=== PATIENT | male | born 2005 | race Two or more races ===

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

== ENCOUNTER 2025-01-15 12:14 | Emergency (ER) | payer OTHER ==
--- OUTSIDE RECORDS SUMMARY | 2025-01-15 12:24 | XMS REPORT | Continuity of Care Document ---
Author Name Unknown Address [address] [facility] [address] [place] [address] [facility] Address [address] [facility] [address] [place] [address] Care Team Providers Care Hvac/R Instructor Name Role Phone Mishel Mejia Primary Care Physician [phone] MONET KRISHNA Attending Clinician Unavailable WILLA CARLIN Attending Clinician Unavailable MELANIE BRANHAM Attending Clinician Unavailable LAB90 Attending Clinician Unavailable MD ZECHARIAH Attending Clinician Unavailab REN Yadav Attending Clinician Unavailable VANESSA LI Attending Clinician Unavailable PAT HOYT-SON Attending Clinician Unavailable MIHAI ANGELO Attending Clinician Unavailab Julisa Duong Attending Clinician [phone] Mishel Mejia Attending Clinician [phone] MISHEL STEPHENS Attending Clinician Unavailable Doctor Unassigned, [place] Attending Clinician U Lyle Lopez Attending Clinician U Tisha Calixto MD Attending Clinician [phone] TISHA HERNANDEZ Attending Clinician Unavailable Nurse, Josh Thorne Attending Clinician Unavailable JULISA BLANCHARD Attending Clinician Unavail able Janny Kraus PA-C Attending Clinician [phone] JANNY KRAUS Attending Clinician Unavailab BARBARA Yarbrough Attending Clinician Unavail able EFREN GREENE Attending Clinician Unavailable Shahana Granado MD Attending Clinician [phone] SHAHANA GRANADO Attending Clinician Unavail able Lab, Lkj Pedi Attending Clinician Unavailable Kimberly Johnson MD Attending Clinician [phone] Payers Payer Name Policy Type Policy Number Effective Date Expirati on Date Source [facility] [facility] 94 9 [id number] 2024 00:00:00 [employer] [facility] [id number] 2023 00:00:00 Problems Condition Name Condition Details Condition Category Status Onset Date Resolution Date Last Treatment Date Treating Clinician Comments Source Current severe episode of major depressive disorder without psychotic features without prior episode (multi HCC) Current severe episode of major depressive disorder without psychotic features without prior episode (multi HCC) Disease Active 11-28 00:00: 00 Maribell Seybold - Externa l Current mild episode of major depressive disorder without prior episode Current mild episode of major depressive disorder without prior episode Disease Active 23 00:00: 00 Maribell Seybold - Externa l Vitamin D deficiency Vitamin D deficiency Disease Active 3-14 00:00: 00 Maribell Seybold - Externa l Class 1 obesity due to excess calories without serious comorbidit y with body mass index (BMI) of 31.0 to 31.9 in adult Class 1 obesity due to excess calories without serious comorbidit y with body mass index (BMI) of 31.0 to 31.9 in adult Disease Active 14 00:00: 00 Maribell Seybold - Externa l Well adult exam Well adult exam Disease Active 01-01 00:00: 00 Maribell Seybold - Externa l Other sexual disorders Other sexual disorders Disease Active 01-01 00:00: 00 Maribell Seybold - Externa l Hair loss Hair loss Disease Active 01-01 00:00: 00 Maribell Seybold - Externa l Other fatigue Other fatigue Disease Active 01-01 00:00: 00 Maribell Seybold - Externa l Current severe episode of major depressive disorder without psychotic features without prior episode (multi HCC) Current severe episode of major depressive disorder without psychotic features without prior episode (multi HCC) Disease Active 01-01 00:00: 00 Maribell Griffina l Anxiety Anxiety Disease Active 01-01 00:00: 00 Maribell Wolf l Epigastric pain Epigastric pain Disease Active 2021-11 00:00: 00 [facility] Blood in stool Blood in stool Disease Active 2021-11 00:00: 00 [facility] Encounter to establish care Encounter to establish care Disease Active 2021-11 00:00: 00 [facility] Constipati on, unspecifie d constipati on type Constipati on, unspecifie d constipati on type Disease Active 2021-11 00:00: 00 [facility] No known active problems No known active problems Disease [facility] Allergies, Adverse Reactions, Alerts Allergy Name Allergy Type Status Severity Reaction(s) Onset Date Inactive Date Treating Clinician Comments Source NO KNOWN ALLERGIE S Drug Class Active [facility] Social History Social Habit Start Date Stop Date Quantity Comments Source Sexual orientation Enio michelle Dunlap - External Gender identity [facility] Alcoholic beverage intake 2024-11-28 00:00:00 2024-11-28 00:00:00 Current drinker of alcohol (finding) Maribell Dunlap - External Alcohol intake 2024-02-04 00:00:00 2024-02-04 00:00:00 Current drinker of alcohol (finding) Maribell Dunlap - External History of Social function 2024-01-01 00:00:00 2024-01-01 00:00:00 Maribell Dunlap - External Alcohol Comment 2024-01-01 00:00:00 2024-01-01 00:00:00 rare Maribell Dunlap - External Sex 2023-11-26 15:16:44 2023-11-26 15:16:44 Male (finding) Maribell Dunlap - External Exposure to SARS-CoV-2 (event) 2022-09-30 00:00:00 2022-10-10 13:33:00 Not sure [facility] Tobacco use and exposure 2022-10-10 00:00:00 2022-10-10 00:00:00 Smokeless tobacco non-user [facility] Sex assigned at 2004 00:00:00 2005 00:00:00 M Maribell Salgado External Smoking Status Start Date Stop Date Source Never smoked tobacco Maribell Salgado External Medications Ordered Medication Name Filled Medication Name Start Date Stop Date Current Medication? Ordering Clinician Indication Dosage Frequency Signature (SIG) Comments Components Source Mupirocin (BACTROBAN) 2 % apply externally Ointment 11-28 00:00: 00 Yes [id number] 1{appli cation} [id number] 3D Apply 1 Applicatio n topically 3 times daily. Maribell silver Finasteride 1 MG oral Tablet 2023-11 00:00: 00 Yes [id number] 1mg QD Take 1 tablet (1 mg total) by mouth daily. Maribell silver Methylpheni date HCl 27 MG oral Tab CR 2023-11 016 00:00: 00 Yes 27mg Take 1 tablet (27 mg total) by mouth every morning. Maribell silver Minoxidil 5 % apply externally Foam 2023-11 0- 00:00: 00 Yes [id number] 1{appli cation} QD Apply 1 Applicatio n topically daily. Maribell silver MINOXIDIL, TOPICAL, (Minoxidil for Men) 5 % apply externally Solution 2023-11 0- 00:00: 00 Yes [id number] 1{appli cation} Q.5D Apply 1 Applicatio n topically 2 times daily. Maribell silver Escitalopra m Oxalate 10 MG oral Tablet 07-18 00:00: 00 11-28 00:00 :00 No Maribell silver Minoxidil 5 % apply externally Foam 06-21 00:00: 00 Yes [id number] 1{appli cation} QD Apply 1 Applicatio n topically daily. Maribell silver Minoxidil-N iacinamide 7-4 % apply externally Solution 7- 00:00: 00 Yes [id number] 1{appli cation} QD Apply 1 Applicatio n topically daily. Maribell silver Escitalopra m Oxalate (Lexapro) 20 MG oral Tablet 06-21 00:00: 00 Yes [id number] 20mg QD Take 1 tablet (20 mg total) by mouth daily. Maribell silver Minoxidil-N iacinamide 7-4 % apply externally Solution 06-17 00:00: 00 06-21 00:00 :00 No [id number] 1{appli cation} QD Apply 1 Applicatio n topically daily. Maribell silver Minoxidil-N iacinamide 7-4 % apply externally Solution 05-24 00:00: 00 Yes [id number] 1{appli cation} QD Apply 1 Applicatio n topically daily. Maribell silver Finasteride 1 MG oral Tablet 05-24 00:00: 00 Yes [id number] 1mg QD Take 1 tablet (1 mg total) by mouth daily. Maribell silver Escitalopra m Oxalate (Lexapro) 20 MG oral Tablet 05-24 00:00: 00 06-21 00:00 :00 No [id number] 20mg QD Take 1 tablet (20 mg total) by mouth daily. Maribell silver Escitalopra m Oxalate 10 MG oral Tablet 05-17 00:00: 05-24 00:00 :00 No TAKE 1/2 TABLET BY MOUTH DAILY X 2 WEEKS THEN TAKE 1 TABLET BY MOUTH EVERY DAY AT BEDTIME Maribell silver Cholecalcif andrés (Vitamin D3) 25 MCG (1000 UT) oral Tablet 05-02 00:00: 00 Yes [id number] 1000U QD Take 1 tablet (1,000 units total) by mouth daily. Maribell silver Amphetamine -Dextroamph etamine 10 MG oral Tablet 04-21 00:00: 00 11-28 00:00 :00 No [id number] TAKE 1 TABLET BY MOUTH 2 TIMES PER DAY (SECOND DOSE @NOON) Maribell silver Fluoxetine HCl 20 MG oral Capsule 4-10 00:00: 00 03-15 00:00 :00 No [id number] 20mg Take 1 capsule (20 mg total) by mouth daily. Maribell silver Pseudoeph-B romphen-DM 30-2-10 MG/5ML oral Syrup 02-23 00:00: 00 03-15 00:00 :00 No [id number] 10mL Take 10 mL by mouth 4 times daily. Maribell silver FLUTICASONE PROPIONATE, NASAL, (Flonase) 50 MCG/ACT nasal Suspension 02-23 00:00: 00 03-15 00:00 :00 No [id number] 50ug QD Use 1 spray (50 mcg total) in each nostril daily as needed for rhinitis. Maribell silver Cholecalcif andrés (Vitamin D) 25 MCG (1000 UT) oral Tablet 02-03 00:00: 00 03-15 00:00 :00 No [id number] 1{tbl} Take 1 tablet by mouth daily. Maribell silver buPROPion HCl 100 MG oral Tablet 02-03 00:00: 00 03-15 00:00 :00 No [id number] 100mg Take 1 tablet (100 mg total) by mouth daily. Maribell silver Sertraline HCl 25 MG oral Tablet 2-09 00:00: 00 Yes [id number] 25mg Take 1 tablet (25 mg total) by mouth daily. Maribell silver No known medications 2021-11 14:01: 06 No No known medication s [facility] ketoconazol e 2 % shampoo 06-18 00:00: 00 10-10 00:00 :00 No [id number] Apply to area(s) once daily as needed for Itching. [facility] triamcinolo ne 0.025 % ointment 06-04 00:00: 00 10-10 00:00 :00 No [id number] AAA BID prn skin irritation /itch [facility] fluocinolon e 0.01 % solution 05-31 00:00: 00 06-04 00:00 :00 No [id number] AAA qhs prn scalp itching [facility] salicyclic acid-sulfur 2-2 % shampoo 04-24 00:00: 06-18 00:00 :00 No [id number] Apply to area(s) once daily as needed for Itching. [facility] sulfamethox azole-trime thoprim (BACTRIM DS) 800-160 mg per tablet 04-24 00:00: 00 05-05 04:59 :00 No [id number] 1{tbl} Take 1 tablet by mouth 2 (two) times daily for 10 days. [facility] mupirocin 2 % ointment 04-24 00:00: 00 05-02 04:59 :00 No [id number] Apply to area(s) 3 (three) times daily for 7 days. [facility] ketoconazol e 2 % shampoo 04-27 00:00: 00 04-24 00:00 :00 No [id number] Apply to area(s) once daily as needed for Itching. [facility] amoxicillin 875 mg tablet 2018-11 0 00:00: 04-27 00:00 :00 No 875mg Take 1 tablet by mouth 2 (two) times daily. Complete the full 10 day prescripti on. [facility] ketoconazol e 2 % shampoo 8- 00:00: 00 10-17 05:59 :00 No [id number] Apply to area(s) once daily as needed for Itching for up to 90 days. [facility] RANITIDINE 150 mg tablet 3-26 00:00: 00 04-27 00:00 :00 No [id number] TAKE 1 TABLET BY MOUTH TWICE A DAY [facility] Immunizations Ordered Immunization Name Filled Immunization Name Date Status Comments Source Influenza Virus Vaccine Quad IM, Preserv and ABX Free 6 MO-64 YRS 2022-10-10 00:00:00 Completed [facility] Influenza Virus Vaccine Quad IM, Preserv and ABX Free 6 MO-64 YRS 2022-10-10 00:00:00 Completed [facility] Influenza Virus Vaccine Quad IM, Preserv and ABX Free 6 MO-64 YRS 2022-10-10 00:00:00 Completed [facility] Influenza Virus Vaccine Quad IM 3+ YRS 2022-10-10 00:00:00 Completed [facility] DTAP 2022-10-10 00:00:00 Completed [facility] HIB 3 Dose Schedule 2022-10-10 00:00:00 Completed [facility] HEPATITIS A 2022-10-10 00:00:00 Completed [facility] Hep B, Adol or Pedi Dosage 2022-10-10 00:00:00 Completed [facility] MMR 2022-10-10 00:00:00 Completed [facility] Pneumococcal 13 Conjugate, PCV13 (Prevnar 13) 2022-10-10 00:00:00 Completed [facility] Polio (IPV/OPV) 2022-10-10 00:00:00 Completed [facility] Varicella (varivax)(chicken pox) 2022-10-10 00:00:00 Completed [facility] Meningococcal B, OMV 2022-10-10 00:00:00 Completed [facility] Meningococcal Polysaccharide (groups A, C, Y and W-135) conjugate vaccine (MCV4P) 2022-10-10 00:00:00 Completed [facility] TDAP 2022-10-10 00:00:00 Completed [facility] HPV9 2022-10-10 00:00:00 Completed [facility] SARS-COV-2 COVID-19 PFIZER VACCINE 2022-10-10 00:00:00 Completed [facility] Influenza Virus Vaccine Quad IM, Preserv and ABX Free 6 MO-64 YRS (FLUCELVAX) 2022-10-10 00:00:00 Completed [facility] SARS-COV-2 COVID-19 PFIZER VACCINE 2021-09-27 00:00:00 Completed [facility] SARS-COV-2 COVID-19 PFIZER VACCINE 2021-09-27 00:00:00 Completed [facility] SARS-COV-2 COVID-19 PFIZER VACCINE 2021-09-27 00:00:00 Completed [facility] SARS-COV-2 COVID-19 PFIZER VACCINE 2021-09-27 00:00:00 Completed [facility] SARS-COV-2 COVID-19 PFIZER VACCINE 2021-09-27 00:00:00 Completed [facility] Influenza Virus Vaccine Quad .5 mL IM 6+ MO 2021-09-20 00:00:00 Completed [facility] Influenza Virus Vaccine Quad .5 mL IM 6+ MO 2021-09-20 00:00:00 Completed [facility] Influenza Virus Vaccine Quad .5 mL IM 6+ MO 2021-09-20 00:00:00 Completed [facility] Influenza Virus Vaccine Quad .5 mL IM 6+ MO 2021-09-20 00:00:00 Completed [facility] Influenza Virus Vaccine Quad .5 mL IM 6+ MO 2021-09-20 00:00:00 Completed [facility] Influenza Virus Vaccine Quad .5 mL IM 6+ MO 2021-09-20 00:00:00 Completed [facility] HPV9 2021-04-24 00:00:00 Completed [facility] HPV9 2021-04-24 00:00:00 Completed [facility] HPV9 2021-04-24 00:00:00 Completed [facility] HPV9 2021-04-24 00:00:00 Completed [facility] HPV9 2021-04-24 00:00:00 Completed [facility] HPV9 2021-04-24 00:00:00 Completed [facility] HPV9 2021-04-24 00:00:00 Completed [facility] HPV9 2021-04-24 00:00:00 Completed [facility] HPV9 2021-04-24 00:00:00 Completed [facility] HPV9 2021-04-24 00:00:00 Completed [facility] HPV9 2021-04-24 00:00:00 Completed [facility] HPV9 2021-04-24 00:00:00 Completed [facility] HPV9 2021-04-24 00:00:00 Completed [facility] HPV9 2021-04-24 00:00:00 Completed [facility] HPV9 2021-04-24 00:00:00 Completed [facility] HPV9 2021-04-24 00:00:00 Completed [facility] SARS-COV-2 COVID-19 PFIZER VACCINE 2021-04-01 00:00:00 Completed [facility] SARS-COV-2 COVID-19 PFIZER VACCINE 2021-04-01 00:00:00 Completed [facility] SARS-COV-2 COVID-19 PFIZER VACCINE 2021-04-01 00:00:00 Completed [facility] SARS-COV-2 COVID-19 PFIZER VACCINE 2021-04-01 00:00:00 Completed [facility] SARS-COV-2 COVID-19 PFIZER VACCINE 2021-04-01 00:00:00 Completed [facility] SARS-COV-2 COVID-19 PFIZER VACCINE 2021-04-01 00:00:00 Completed [facility] SARS-COV-2 COVID-19 PFIZER VACCINE 2021-04-01 00:00:00 Completed [facility] SARS-COV-2 COVID-19 PFIZER VACCINE 2021-03-09 00:00:00 Completed [facility] SARS-COV-2 COVID-19 PFIZER VACCINE 2021-03-09 00:00:00 Completed [facility] SARS-COV-2 COVID-19 PFIZER VACCINE 2021-03-09 00:00:00 Completed [facility] SARS-COV-2 COVID-19 PFIZER VACCINE 2021-03-09 00:00:00 Completed [facility] SARS-COV-2 COVID-19 PFIZER VACCINE 2021-03-09 00:00:00 Completed [facility] SARS-COV-2 COVID-19 PFIZER VACCINE 2021-03-09 00:00:00 Completed [facility] SARS-COV-2 COVID-19 PFIZER VACCINE 2021-03-09 00:00:00 Completed [facility] TDAP 2021-02-01 00:00:00 Completed [facility] HPV9 2021-02-01 00:00:00 Completed [facility] TDAP 2021-02-01 00:00:00 Completed [facility] HPV9 2021-02-01 00:00:00 Completed [facility] TDAP 2021-02-01 00:00:00 Completed [facility] HPV9 2021-02-01 00:00:00 Completed [facility] TDAP 2021-02-01 00:00:00 Completed [facility] HPV9 2021-02-01 00:00:00 Completed [facility] TDAP 2021-02-01 00:00:00 Completed [facility] HPV9 2021-02-01 00:00:00 Completed [facility] TDAP 2021-02-01 00:00:00 Completed [facility] HPV9 2021-02-01 00:00:00 Completed [facility] TDAP 2021-02-01 00:00:00 Completed [facility] HPV9 2021-02-01 00:00:00 Completed [facility] TDAP 2021-02-01 00:00:00 Completed [facility] HPV9 2021-02-01 00:00:00 Completed [facility] TDAP 2021-02-01 00:00:00 Completed [facility] HPV9 2021-02-01 00:00:00 Completed [facility] TDAP 2021-02-01 00:00:00 Completed [facility] HPV9 2021-02-01 00:00:00 Completed [facility] TDAP 2021-02-01 00:00:00 Completed [facility] HPV9 2021-02-01 00:00:00 Completed [facility] TDAP 2021-02-01 00:00:00 Completed [facility] HPV9 2021-02-01 00:00:00 Completed [facility] TDAP 2021-02-01 00:00:00 Completed [facility] HPV9 2021-02-01 00:00:00 Completed [facility] TDAP 2021-02-01 00:00:00 Completed [facility] HPV9 2021-02-01 00:00:00 Completed [facility] TDAP 2021-02-01 00:00:00 Completed [facility] HPV9 2021-02-01 00:00:00 Completed [facility] TDAP 2021-02-01 00:00:00 Completed [facility] HPV9 2021-02-01 00:00:00 Completed [facility] TDAP 2021-02-01 00:00:00 Completed [facility] HPV9 2021-02-01 00:00:00 Completed [facility] Influenza Virus Vaccine Quad .5 mL IM 6+ MO 2020-08-31 00:00:00 Completed [facility] Influenza Virus Vaccine Quad .5 mL IM 6+ MO 2020-08-31 00:00:00 Completed [facility] Influenza Virus Vaccine Quad .5 mL IM 6+ MO 2020-08-31 00:00:00 Completed [facility] Influenza Virus Vaccine Quad .5 mL IM 6+ MO 2020-08-31 00:00:00 Completed [facility] Influenza Virus Vaccine Quad .5 mL IM 6+ MO 2020-08-31 00:00:00 Completed [facility] Influenza Virus Vaccine Quad .5 mL IM 6+ MO 2020-08-31 00:00:00 Completed [facility] Influenza Virus Vaccine Quad .5 mL IM 6+ MO 2020-08-31 00:00:00 Completed [facility] Influenza Virus Vaccine Quad .5 mL IM 6+ MO 2020-08-31 00:00:00 Completed [facility] Influenza Virus Vaccine Quad .5 mL IM 6+ MO 2020-08-31 00:00:00 Completed [facility] Influenza Virus Vaccine Quad .5 mL IM 6+ MO 2020-08-31 00:00:00 Completed [facility] Influenza Virus Vaccine Quad .5 mL IM 6+ MO 2020-08-31 00:00:00 Completed [facility] Influenza Virus Vaccine Quad .5 mL IM 6+ MO 2020-08-31 00:00:00 Completed [facility] Influenza Virus Vaccine Quad .5 mL IM 6+ MO 2020-08-31 00:00:00 Completed [facility] Influenza Virus Vaccine Quad .5 mL IM 6+ MO 2020-08-31 00:00:00 Completed [facility] Influenza Virus Vaccine Quad .5 mL IM 6+ MO 2020-08-31 00:00:00 Completed [facility] Influenza Virus Vaccine Quad .5 mL IM 6+ MO 2020-08-31 00:00:00 Completed [facility] Influenza Virus Vaccine Quad .5 mL IM 6+ MO 2020-08-31 00:00:00 Completed [facility] Influenza Virus Vaccine Quad .5 mL IM 6+ MO 2020-08-31 00:00:00 Completed [facility] Influenza Virus Vaccine Quad .5 mL IM 6+ MO 2020-08-31 00:00:00 Completed [facility] Influenza Virus Vaccine Quad .5 mL IM 6+ MO 2020-08-31 00:00:00 Completed [facility] Influenza Virus Vaccine Quad .5 mL IM 6+ MO 2020-08-31 00:00:00 Completed [facility] Influenza Virus Vaccine Quad .5 mL IM 6+ MO 2020-08-31 00:00:00 Completed [facility] Influenza Virus Vaccine Quad .5 mL IM 6+ MO 2020-08-31 00:00:00 Completed [facility] Influenza Virus Vaccine Quad .5 mL IM 6+ MO 2020-08-31 00:00:00 Completed [facility] Meningococcal B, OMV 2020-05-30 00:00:00 Completed [facility] Meningococcal B, OMV 2020-05-30 00:00:00 Completed [facility] Meningococcal B, OMV 2020-05-30 00:00:00 Completed [facility] Meningococcal B, OMV 2020-05-30 00:00:00 Completed [facility] Meningococcal B, OMV 2020-05-30 00:00:00 Completed [facility] Meningococcal B, OMV 2020-05-30 00:00:00 Completed [facility] Meningococcal B, OMV 2020-05-30 00:00:00 Completed [facility] Meningococcal B, OMV 2020-05-30 00:00:00 Completed [facility] Meningococcal B, OMV 2020-05-30 00:00:00 Completed [facility] Meningococcal B, OMV 2020-05-30 00:00:00 Completed [facility] Meningococcal B, OMV 2020-05-30 00:00:00 Completed [facility] Meningococcal B, OMV 2020-05-30 00:00:00 Completed [facility] Meningococcal B, OMV 2020-05-30 00:00:00 Completed [facility] Meningococcal B, OMV 2020-05-30 00:00:00 Completed [facility] Meningococcal B, OMV 2020-05-30 00:00:00 Completed [facility] Meningococcal B, OMV 2020-05-30 00:00:00 Completed [facility] Meningococcal B, OMV 2020-05-30 00:00:00 Completed [facility] Meningococcal B, OMV 2020-05-30 00:00:00 Completed [facility] Meningococcal B, OMV 2020-05-30 00:00:00 Completed [facility] Meningococcal B, OMV 2020-05-30 00:00:00 Completed [facility] Meningococcal B, OMV 2020-05-30 00:00:00 Completed [facility] Meningococcal B, OMV 2020-05-30 00:00:00 Completed [facility] Meningococcal B, OMV 2020-05-30 00:00:00 Completed [facility] Meningococcal B, OMV 2020-05-30 00:00:00 Completed [facility] Meningococcal B, OMV 2020-05-30 00:00:00 Completed [facility] Meningococcal B, OMV 2020-05-30 00:00:00 Completed [facility] Meningococcal B, OMV 2020-05-30 00:00:00 Completed [facility] Meningococcal B, OMV 2020-05-30 00:00:00 Completed [facility] Meningococcal B, OMV 2020-05-30 00:00:00 Completed [facility] Meningococcal B, OMV 2020-05-30 00:00:00 Completed [facility] Meningococcal B, OMV 2020-05-30 00:00:00 Completed [facility] Meningococcal B, OMV 2020-05-30 00:00:00 Completed [facility] Meningococcal B, OMV 2020-04-27 00:00:00 Completed [facility] Meningococcal Polysaccharide (groups A, C, Y and W-135) conjugate vaccine (MCV4P) 2020-04-27 00:00:00 Completed [facility] Meningococcal B, OMV 2020-04-27 00:00:00 Completed [facility] Meningococcal Polysaccharide (groups A, C, Y and W-135) conjugate vaccine (MCV4P) 2020-04-27 00:00:00 Completed [facility] Meningococcal B, OMV 2020-04-27 00:00:00 Completed [facility] Meningococcal Polysaccharide (groups A, C, Y and W-135) conjugate vaccine (MCV4P) 2020-04-27 00:00:00 Completed [facility] Meningococcal B, OMV 2020-04-27 00:00:00 Completed [facility] Meningococcal Polysaccharide (groups A, C, Y and W-135) conjugate vaccine (MCV4P) 2020-04-27 00:00:00 Completed [facility] Meningococcal B, OMV 2020-04-27 00:00:00 Completed [facility] Meningococcal Polysaccharide (groups A, C, Y and W-135) conjugate vaccine (MCV4P) 2020-04-27 00:00:00 Completed [facility] Meningococcal B, OMV 2020-04-27 00:00:00 Completed [facility] Meningococcal Polysaccharide (groups A, C, Y and W-135) conjugate vaccine (MCV4P) 2020-04-27 00:00:00 Completed [facility] Meningococcal B, OMV 2020-04-27 00:00:00 Completed [facility] Meningococcal Polysaccharide (groups A, C, Y and W-135) conjugate vaccine (MCV4P) 2020-04-27 00:00:00 Completed [facility] Meningococcal B, OMV 2020-04-27 00:00:00 Completed [facility] Meningococcal Polysaccharide (groups A, C, Y and W-135) conjugate vaccine (MCV4P) 2020-04-27 00:00:00 Completed [facility] Meningococcal B, OMV 2020-04-27 00:00:00 Completed [facility] Meningococcal Polysaccharide (groups A, C, Y and W-135) conjugate vaccine (MCV4P) 2020-04-27 00:00:00 Completed [facility] Meningococcal B, OMV 2020-04-27 00:00:00 Completed [facility] Meningococcal Polysaccharide (groups A, C, Y and W-135) conjugate vaccine (MCV4P) 2020-04-27 00:00:00 Completed [facility] Meningococcal B, OMV 2020-04-27 00:00:00 Completed [facility] Meningococcal Polysaccharide (groups A, C, Y and W-135) conjugate vaccine (MCV4P) 2020-04-27 00:00:00 Completed [facility] Meningococcal B, OMV 2020-04-27 00:00:00 Completed [facility] Meningococcal Polysaccharide (groups A, C, Y and W-135) conjugate vaccine (MCV4P) 2020-04-27 00:00:00 Completed [facility] Meningococcal B, OMV 2020-04-27 00:00:00 Completed [facility] Meningococcal Polysaccharide (groups A, C, Y and W-135) conjugate vaccine (MCV4P) 2020-04-27 00:00:00 Completed [facility] Meningococcal B, OMV 2020-04-27 00:00:00 Completed [facility] Meningococcal Polysaccharide (groups A, C, Y and W-135) conjugate vaccine (MCV4P) 2020-04-27 00:00:00 Completed [facility] Meningococcal B, OMV 2020-04-27 00:00:00 Completed [facility] Meningococcal Polysaccharide (groups A, C, Y and W-135) conjugate vaccine (MCV4P) 2020-04-27 00:00:00 Completed [facility] Meningococcal B, OMV 2020-04-27 00:00:00 Completed [facility] Meningococcal Polysaccharide (groups A, C, Y and W-135) conjugate vaccine (MCV4P) 2020-04-27 00:00:00 Completed [facility] Meningococcal B, OMV 2020-04-27 00:00:00 Completed [facility] Meningococcal Polysaccharide (groups A, C, Y and W-135) conjugate vaccine (MCV4P) 2020-04-27 00:00:00 Completed [facility] Meningococcal B, OMV 2020-04-27 00:00:00 Completed [facility] Meningococcal Polysaccharide (groups A, C, Y and W-135) conjugate vaccine (MCV4P) 2020-04-27 00:00:00 Completed [facility] Meningococcal B, OMV 2020-04-27 00:00:00 Completed [facility] Meningococcal Polysaccharide (groups A, C, Y and W-135) conjugate vaccine (MCV4P) 2020-04-27 00:00:00 Completed [facility] Meningococcal B, OMV 2020-04-27 00:00:00 Completed [facility] Meningococcal Polysaccharide (groups A, C, Y and W-135) conjugate vaccine (MCV4P) 2020-04-27 00:00:00 Completed [facility] Meningococcal B, OMV 2020-04-27 00:00:00 Completed [facility] Meningococcal Polysaccharide (groups A, C, Y and W-135) conjugate vaccine (MCV4P) 2020-04-27 00:00:00 Completed [facility] Meningococcal B, OMV 2020-04-27 00:00:00 Completed [facility] Meningococcal Polysaccharide (groups A, C, Y and W-135) conjugate vaccine (MCV4P) 2020-04-27 00:00:00 Completed [facility] Meningococcal B, OMV 2020-04-27 00:00:00 Completed [facility] Meningococcal Polysaccharide (groups A, C, Y and W-135) conjugate vaccine (MCV4P) 2020-04-27 00:00:00 Completed [facility] Meningococcal B, OMV 2020-04-27 00:00:00 Completed [facility] Meningococcal Polysaccharide (groups A, C, Y and W-135) conjugate vaccine (MCV4P) 2020-04-27 00:00:00 Completed [facility] Meningococcal B, OMV 2020-04-27 00:00:00 Completed [facility] Meningococcal Polysaccharide (groups A, C, Y and W-135) conjugate vaccine (MCV4P) 2020-04-27 00:00:00 Completed [facility] Meningococcal B, OMV 2020-04-27 00:00:00 Completed [facility] Meningococcal Polysaccharide (groups A, C, Y and W-135) conjugate vaccine (MCV4P) 2020-04-27 00:00:00 Completed [facility] Meningococcal B, OMV 2020-04-27 00:00:00 Completed [facility] Meningococcal Polysaccharide (groups A, C, Y and W-135) conjugate vaccine (MCV4P) 2020-04-27 00:00:00 Completed [facility] Meningococcal B, OMV 2020-04-27 00:00:00 Completed [facility] Meningococcal Polysaccharide (groups A, C, Y and W-135) conjugate vaccine (MCV4P) 2020-04-27 00:00:00 Completed [facility] Meningococcal B, OMV 2020-04-27 00:00:00 Completed [facility] Meningococcal Polysaccharide (groups A, C, Y and W-135) conjugate vaccine (MCV4P) 2020-04-27 00:00:00 Completed [facility] Meningococcal B, OMV 2020-04-27 00:00:00 Completed [facility] Meningococcal Polysaccharide (groups A, C, Y and W-135) conjugate vaccine (MCV4P) 2020-04-27 00:00:00 Completed [facility] Meningococcal B, OMV 2020-04-27 00:00:00 Completed [facility] Meningococcal Polysaccharide (groups A, C, Y and W-135) conjugate vaccine (MCV4P) 2020-04-27 00:00:00 Completed [facility] Meningococcal B, OMV 2020-04-27 00:00:00 Completed [facility] Meningococcal Polysaccharide (groups A, C, Y and W-135) conjugate vaccine (MCV4P) 2020-04-27 00:00:00 Completed [facility] Meningococcal B, OMV 2020-04-27 00:00:00 Completed [facility] Meningococcal Polysaccharide (groups A, C, Y and W-135) conjugate vaccine (MCV4P) 2020-04-27 00:00:00 Completed [facility] Influenza Virus Vaccine Quad IM 3+ YRS 2017-01-22 00:00:00 Completed [facility] Influenza Virus Vaccine Quad IM 3+ YRS 2017-01-22 00:00:00 Completed [facility] Influenza Virus Vaccine Quad IM 3+ YRS 2017-01-22 00:00:00 Completed [facility] Influenza Virus Vaccine Quad IM 3+ YRS 2017-01-22 00:00:00 Completed [facility] Influenza Virus Vaccine Quad IM 3+ YRS 2017-01-22 00:00:00 Completed [facility] Influenza Virus Vaccine Quad IM 3+ YRS 2017-01-22 00:00:00 Completed [facility] Influenza Virus Vaccine Quad IM 3+ YRS 2017-01-22 00:00:00 Completed [facility] Influenza Virus Vaccine Quad IM 3+ YRS 2017-01-22 00:00:00 Completed [facility] Influenza Virus Vaccine Quad IM 3+ YRS 2017-01-22 00:00:00 Completed [facility] Influenza Virus Vaccine Quad IM 3+ YRS 2017-01-22 00:00:00 Completed [facility] Influenza Virus Vaccine Quad IM 3+ YRS 2017-01-22 00:00:00 Completed [facility] Influenza Virus Vaccine Quad IM 3+ YRS 2017-01-22 00:00:00 Completed [facility] Influenza Virus Vaccine Quad IM 3+ YRS 2017-01-22 00:00:00 Completed [facility] Influenza Virus Vaccine Quad IM 3+ YRS 2017-01-22 00:00:00 Completed [facility] Influenza Virus Vaccine Quad IM 3+ YRS 2017-01-22 00:00:00 Completed [facility] Influenza Virus Vaccine Quad IM 3+ YRS 2017-01-22 00:00:00 Completed [facility] Influenza Virus Vaccine Quad IM 3+ YRS 2017-01-22 00:00:00 Completed [facility] Influenza Virus Vaccine Quad IM 3+ YRS 2017-01-22 00:00:00 Completed [facility] Influenza Virus Vaccine Quad IM 3+ YRS 2017-01-22 00:00:00 Completed [facility] Influenza Virus Vaccine Quad IM 3+ YRS 2017-01-22 00:00:00 Completed [facility] Influenza Virus Vaccine Quad IM 3+ YRS 2017-01-22 00:00:00 Completed [facility] Influenza Virus Vaccine Quad IM 3+ YRS 2017-01-22 00:00:00 Completed [facility] Influenza Virus Vaccine Quad IM 3+ YRS 2017-01-22 00:00:00 Completed [facility] Influenza Virus Vaccine Quad IM 3+ YRS 2017-01-22 00:00:00 Completed [facility] Influenza Virus Vaccine Quad IM 3+ YRS 2017-01-22 00:00:00 Completed [facility] Influenza Virus Vaccine Quad IM 3+ YRS 2017-01-22 00:00:00 Completed [facility] Influenza Virus Vaccine Quad IM 3+ YRS 2017-01-22 00:00:00 Completed [facility] Influenza Virus Vaccine Quad IM 3+ YRS 2017-01-22 00:00:00 Completed [facility] Influenza Virus Vaccine Quad IM 3+ YRS 2017-01-22 00:00:00 Completed [facility] Influenza Virus Vaccine Quad IM 3+ YRS 2017-01-22 00:00:00 Completed [facility] Influenza Virus Vaccine Quad IM 3+ YRS 2017-01-22 00:00:00 Completed [facility] Influenza Virus Vaccine Quad IM 3+ YRS 2017-01-22 00:00:00 Completed [facility] Influenza Virus Vaccine Quad IM 3+ YRS 2017-01-22 00:00:00 Completed [facility] Influenza Virus Vaccine Quad IM 3+ YRS 2017-01-22 00:00:00 Completed [facility] Influenza Virus Vaccine Quad IM 3+ YRS 2017-01-22 00:00:00 Completed [facility] Influenza Virus Vaccine Quad IM 3+ YRS 2017-01-22 00:00:00 Completed [facility] Influenza Virus Vaccine Quad IM 3+ YRS 2017-01-22 00:00:00 Completed [facility] Influenza Virus Vaccine Quad IM 3+ YRS 2017-01-22 00:00:00 Completed [facility] Influenza Virus Vaccine Quad IM 3+ YRS 2017-01-22 00:00:00 Completed [facility] Influenza Virus Vaccine Quad IM 3+ YRS 2017-01-22 00:00:00 Completed [facility] MMR 2009-02-08 00:00:00 Completed [facility] Varicella (varivax)(chicken pox) 2009-02-08 00:00:00 Completed [facility] MMR 2009-02-08 00:00:00 Completed [facility] Varicella (varivax)(chicken pox) 2009-02-08 00:00:00 Completed [facility] MMR 2009-02-08 00:00:00 Completed [facility] MMR 2009-02-08 00:00:00 Completed [facility] Varicella (varivax)(chicken pox) 2009-02-08 00:00:00 Completed [facility] Varicella (varivax)(chicken pox) 2009-02-08 00:00:00 Completed [facility] 2009-02-08 00:00:00 Completed [facility] Varicella (varivax)(chicken pox) 2009-02-08 00:00:00 Completed [facility] 2009-02-08 00:00:00 Completed [facility] Varicella (varivax)(chicken pox) 2009-02-08 00:00:00 Completed [facility] 2009-02-08 00:00:00 Completed [facility] Varicella (varivax)(chicken pox) 2009-02-08 00:00:00 Completed [facility] 2009-02-08 00:00:00 Completed [facility] Varicella (varivax)(chicken pox) 2009-02-08 00:00:00 Completed [facility] 2009-02-08 00:00:00 Completed [facility] Varicella (varivax)(chicken pox) 2009-02-08 00:00:00 Completed [facility] 2009-02-08 00:00:00 Completed [facility] Varicella (varivax)(chicken pox) 2009-02-08 00:00:00 Completed [facility] 2009-02-08 00:00:00 Completed [facility] Varicella (varivax)(chicken pox) 2009-02-08 00:00:00 Completed [facility] 2009-02-08 00:00:00 Completed [facility] Varicella (varivax)(chicken pox) 2009-02-08 00:00:00 Completed [facility] 2009-02-08 00:00:00 Completed [facility] Varicella (varivax)(chicken pox) 2009-02-08 00:00:00 Completed [facility] 2009-02-08 00:00:00 Completed [facility] 2009-02-08 00:00:00 Completed [facility] Varicella (varivax)(chicken pox) 2009-02-08 00:00:00 Completed [facility] Varicella (varivax)(chicken pox) 2009-02-08 00:00:00 Completed [facility] 2009-02-08 00:00:00 Completed [facility] Varicella (varivax)(chicken pox) 2009-02-08 00:00:00 Completed [facility] 2009-02-08 00:00:00 Completed [facility] Varicella (varivax)(chicken pox) 2009-02-08 00:00:00 Completed [facility] 2009-02-08 00:00:00 Completed [facility] Varicella (varivax)(chicken pox) 2009-02-08 00:00:00 Completed [facility] 2009-02-08 00:00:00 Completed [facility] Varicella (varivax)(chicken pox) 2009-02-08 00:00:00 Completed [facility] 2009-02-08 00:00:00 Completed [facility] Varicella (varivax)(chicken pox) 2009-02-08 00:00:00 Completed [facility] 2009-02-08 00:00:00 Completed [facility] Varicella (varivax)(chicken pox) 2009-02-08 00:00:00 Completed [facility] 2009-02-08 00:00:00 Completed [facility] Varicella (varivax)(chicken pox) 2009-02-08 00:00:00 Completed [facility] 2009-02-08 00:00:00 Completed [facility] Varicella (varivax)(chicken pox) 2009-02-08 00:00:00 Completed [facility] 2009-02-08 00:00:00 Completed [facility] Varicella (varivax)(chicken pox) 2009-02-08 00:00:00 Completed [facility] 2009-02-08 00:00:00 Completed [facility] Varicella (varivax)(chicken pox) 2009-02-08 00:00:00 Completed [facility] 2009-02-08 00:00:00 Completed [facility] Varicella (varivax)(chicken pox) 2009-02-08 00:00:00 Completed [facility] MMR 2009-02-08 00:00:00 Completed [facility] Varicella (varivax)(chicken pox) 2009-02-08 00:00:00 Completed [facility] MMR 2009-02-08 00:00:00 Completed [facility] Varicella (varivax)(chicken pox) 2009-02-08 00:00:00 Completed [facility] MMR 2009-02-08 00:00:00 Completed [facility] Varicella (varivax)(chicken pox) 2009-02-08 00:00:00 Completed [facility] MMR 2009-02-08 00:00:00 Completed [facility] Varicella (varivax)(chicken pox) 2009-02-08 00:00:00 Completed [facility] MMR 2009-02-08 00:00:00 Completed [facility] Varicella (varivax)(chicken pox) 2009-02-08 00:00:00 Completed [facility] 2009-02-08 00:00:00 Completed [facility] Varicella (varivax)(chicken pox) 2009-02-08 00:00:00 Completed [facility] 2009-02-08 00:00:00 Completed [facility] Varicella (varivax)(chicken pox) 2009-02-08 00:00:00 Completed [facility] MMR 2009-02-08 00:00:00 Completed [facility] Varicella (varivax)(chicken pox) 2009-02-08 00:00:00 Completed [facility] MMR 2009-02-08 00:00:00 Completed [facility] Varicella (varivax)(chicken pox) 2009-02-08 00:00:00 Completed [facility] MMR 2009-02-08 00:00:00 Completed [facility] Varicella (varivax)(chicken pox) 2009-02-08 00:00:00 Completed [facility] MMR 2009-02-08 00:00:00 Completed [facility] Varicella (varivax)(chicken pox) 2009-02-08 00:00:00 Completed [facility] DTAP 2009-01-09 00:00:00 Completed [facility] HIB 3 Dose Schedule 2009-01-09 00:00:00 Completed [facility] HEPATITIS A 2009-01-09 00:00:00 Completed [facility] Hep B, Adol or Pedi Dosage 2009-01-09 00:00:00 Completed [facility] MMR 2009-01-09 00:00:00 Completed [facility] Pneumococcal 13 Conjugate, PCV13 (Prevnar 13) 2009-01-09 00:00:00 Completed [facility] Polio (IPV/OPV) 2009-01-09 00:00:00 Completed [facility] Varicella (varivax)(chicken pox) 2009-01-09 00:00:00 Completed [facility] DTAP 2009-01-09 00:00:00 Completed [facility] HIB 3 Dose Schedule 2009-01-09 00:00:00 Completed [facility] HEPATITIS A 2009-01-09 00:00:00 Completed [facility] Hep B, Adol or Pedi Dosage 2009-01-09 00:00:00 Completed [facility] MMR 2009-01-09 00:00:00 Completed [facility] Pneumococcal 13 Conjugate, PCV13 (Prevnar 13) 2009-01-09 00:00:00 Completed [facility] Polio (IPV/OPV) 2009-01-09 00:00:00 Completed [facility] Varicella (varivax)(chicken pox) 2009-01-09 00:00:00 Completed [facility] DTAP 2009-01-09 00:00:00 Completed [facility] HIB 3 Dose Schedule 2009-01-09 00:00:00 Completed [facility] HEPATITIS A 2009-01-09 00:00:00 Completed [facility] Hep B, Adol or Pedi Dosage 2009-01-09 00:00:00 Completed [facility] MMR 2009-01-09 00:00:00 Completed [facility] Pneumococcal 13 Conjugate, PCV13 (Prevnar 13) 2009-01-09 00:00:00 Completed [facility] DTAP 2009-01-09 00:00:00 Completed [facility] HIB 3 Dose Schedule 2009-01-09 00:00:00 Completed [facility] HEPATITIS A 2009-01-09 00:00:00 Completed [facility] Hep B, Adol or Pedi Dosage 2009-01-09 00:00:00 Completed [facility] MMR 2009-01-09 00:00:00 Completed [facility] Polio (IPV/OPV) 2009-01-09 00:00:00 Completed [facility] Pneumococcal 13 Conjugate, PCV13 (Prevnar 13) 2009-01-09 00:00:00 Completed [facility] Polio (IPV/OPV) 2009-01-09 00:00:00 Completed [facility] Varicella (varivax)(chicken pox) 2009-01-09 00:00:00 Completed [facility] Varicella (varivax)(chicken pox) 2009-01-09 00:00:00 Completed [facility] DTAP 2009-01-09 00:00:00 Completed [facility] HIB 3 Dose Schedule 2009-01-09 00:00:00 Completed [facility] HEPATITIS A 2009-01-09 00:00:00 Completed [facility] Hep B, Adol or Pedi Dosage 2009-01-09 00:00:00 Completed [facility] MMR 2009-01-09 00:00:00 Completed [facility] Pneumococcal 13 Conjugate, PCV13 (Prevnar 13) 2009-01-09 00:00:00 Completed [facility] Polio (IPV/OPV) 2009-01-09 00:00:00 Completed [facility] Varicella (varivax)(chicken pox) 2009-01-09 00:00:00 Completed [facility] DTAP 2009-01-09 00:00:00 Completed [facility] HIB 3 Dose Schedule 2009-01-09 00:00:00 Completed [facility] HEPATITIS A 2009-01-09 00:00:00 Completed [facility] Hep B, Adol or Pedi Dosage 2009-01-09 00:00:00 Completed [facility] MMR 2009-01-09 00:00:00 Completed [facility] Pneumococcal 13 Conjugate, PCV13 (Prevnar 13) 2009-01-09 00:00:00 Completed [facility] Polio (IPV/OPV) 2009-01-09 00:00:00 Completed [facility] Varicella (varivax)(chicken pox) 2009-01-09 00:00:00 Completed [facility] DTAP 2009-01-09 00:00:00 Completed [facility] HIB 3 Dose Schedule 2009-01-09 00:00:00 Completed [facility] HEPATITIS A 2009-01-09 00:00:00 Completed [facility] Hep B, Adol or Pedi Dosage 2009-01-09 00:00:00 Completed [facility] DTAP 2009-01-09 00:00:00 Completed [facility] MMR 2009-01-09 00:00:00 Completed [facility] Pneumococcal 13 Conjugate, PCV13 (Prevnar 13) 2009-01-09 00:00:00 Completed [facility] Polio (IPV/OPV) 2009-01-09 00:00:00 Completed [facility] Varicella (varivax)(chicken pox) 2009-01-09 00:00:00 [facility] [facility] H[facility] 3 Dose Schedule 2009-01-09 00:00:00 Completed [facility] HEPATITIS A 2009-01-09 00:00:00 Completed [facility] DTAP 2009-01-09 00:00:00 Completed [facility] HIB 3 Dose Schedule 2009-01-09 00:00:00 Completed [facility] HEPATITIS A 2009-01-09 00:00:00 Completed [facility] Hep B, Adol or Pedi Dosage 2009-01-09 00:00:00 Completed [facility] MMR 2009-01-09 00:00:00 Completed [facility] Pneumococcal 13 Conjugate, PCV13 (Prevnar 13) 2009-01-09 00:00:00 Completed [facility] Polio (IPV/OPV) 2009-01-09 00:00:00 Completed [facility] Varicella (varivax)(chicken pox) 2009-01-09 00:00:00 Completed [facility] Hep B, Adol or Pedi Dosage 2009-01-09 00:00:00 Completed [facility] MMR 2009-01-09 00:00:00 Completed [facility] Pneumococcal 13 Conjugate, PCV13 (Prevnar 13) 2009-01-09 00:00:00 Completed [facility] Polio (IPV/OPV) 2009-01-09 00:00:00 Completed [facility] Varicella (varivax)(chicken pox) 2009-01-09 00:00:00 Completed [facility] DTAP 2009-01-09 00:00:00 Completed [facility] HIB 3 Dose Schedule 2009-01-09 00:00:00 Completed [facility] HEPATITIS A 2009-01-09 00:00:00 Completed [facility] Hep B, Adol or Pedi Dosage 2009-01-09 00:00:00 Completed [facility] MMR 2009-01-09 00:00:00 Completed [facility] Pneumococcal 13 Conjugate, PCV13 (Prevnar 13) 2009-01-09 00:00:00 Completed [facility] Polio (IPV/OPV) 2009-01-09 00:00:00 Completed [facility] Varicella (varivax)(chicken pox) 2009-01-09 00:00:00 Completed [facility] DTAP 2009-01-09 00:00:00 Completed [facility] HIB 3 Dose Schedule 2009-01-09 00:00:00 Completed [facility] HEPATITIS A 2009-01-09 00:00:00 Completed [facility] Hep B, Adol or Pedi Dosage 2009-01-09 00:00:00 Completed [facility] MMR 2009-01-09 00:00:00 Completed [facility] Pneumococcal 13 Conjugate, PCV13 (Prevnar 13) 2009-01-09 00:00:00 Completed [facility] Polio (IPV/OPV) 2009-01-09 00:00:00 Completed [facility] Varicella (varivax)(chicken pox) 2009-01-09 00:00:00 Completed [facility] DTAP 2009-01-09 00:00:00 Completed [facility] DTAP 2009-01-09 00:00:00 Completed [facility] HIB 3 Dose Schedule 2009-01-09 00:00:00 Completed [facility] HEPATITIS A 2009-01-09 00:00:00 Completed [facility] Hep B, Adol or Pedi Dosage 2009-01-09 00:00:00 Completed [facility] HIB 3 Dose Schedule 2009-01-09 00:00:00 Completed [facility] MMR 2009-01-09 00:00:00 Completed [facility] Pneumococcal 13 Conjugate, PCV13 (Prevnar 13) 2009-01-09 00:00:00 Completed [facility] Polio (IPV/OPV) 2009-01-09 00:00:00 Completed [facility] Varicella (varivax)(chicken pox) 2009-01-09 00:00:00 Completed [facility] HEPATITIS A 2009-01-09 00:00:00 Completed [facility] DTAP 2009-01-09 00:00:00 Completed [facility] HIB 3 Dose Schedule 2009-01-09 00:00:00 Completed [facility] HEPATITIS A 2009-01-09 00:00:00 Completed [facility] Hep B, Adol or Pedi Dosage 2009-01-09 00:00:00 Completed [facility] MMR 2009-01-09 00:00:00 Completed [facility] Pneumococcal 13 Conjugate, PCV13 (Prevnar 13) 2009-01-09 00:00:00 Completed [facility] Hep B, Adol or Pedi Dosage 2009-01-09 00:00:00 Completed [facility] Polio (IPV/OPV) 2009-01-09 00:00:00 Completed [facility] Varicella (varivax)(chicken pox) 2009-01-09 00:00:00 Completed [facility] MMR 2009-01-09 00:00:00 Completed [facility] Pneumococcal 13 Conjugate, PCV13 (Prevnar 13) 2009-01-09 00:00:00 Completed [facility] DTAP 2009-01-09 00:00:00 Completed [facility] HIB 3 Dose Schedule 2009-01-09 00:00:00 Completed [facility] HEPATITIS A 2009-01-09 00:00:00 Completed [facility] Hep B, Adol or Pedi Dosage 2009-01-09 00:00:00 Completed [facility] MMR 2009-01-09 00:00:00 Completed [facility] Pneumococcal 13 Conjugate, PCV13 (Prevnar 13) 2009-01-09 00:00:00 Completed [facility] Polio (IPV/OPV) 2009-01-09 00:00:00 Completed [facility] Varicella (varivax)(chicken pox) 2009-01-09 00:00:00 Completed [facility] Polio (IPV/OPV) 2009-01-09 00:00:00 Completed [facility] Varicella (varivax)(chicken pox) 2009-01-09 00:00:00 Completed [facility] DTAP 2009-01-09 00:00:00 Completed [facility] HIB 3 Dose Schedule 2009-01-09 00:00:00 Completed [facility] HEPATITIS A 2009-01-09 00:00:00 Completed [facility] Hep B, Adol or Pedi Dosage 2009-01-09 00:00:00 Completed [facility] MMR 2009-01-09 00:00:00 Completed [facility] Pneumococcal 13 Conjugate, PCV13 (Prevnar 13) 2009-01-09 00:00:00 Completed [facility] Polio (IPV/OPV) 2009-01-09 00:00:00 Completed [facility] Varicella (varivax)(chicken pox) 2009-01-09 00:00:00 Completed [facility] DTAP 2009-01-09 00:00:00 Completed [facility] HIB 3 Dose Schedule 2009-01-09 00:00:00 Completed [facility] HEPATITIS A 2009-01-09 00:00:00 Completed [facility] Hep B, Adol or Pedi Dosage 2009-01-09 00:00:00 Completed [facility] MMR 2009-01-09 00:00:00 Completed [facility] Pneumococcal 13 Conjugate, PCV13 (Prevnar 13) 2009-01-09 00:00:00 Completed [facility] Polio (IPV/OPV) 2009-01-09 00:00:00 Completed [facility] Varicella (varivax)(chicken pox) 2009-01-09 00:00:00 Completed [facility] DTAP 2009-01-09 00:00:00 Completed [facility] HIB 3 Dose Schedule 2009-01-09 00:00:00 Completed [facility] HEPATITIS A 2009-01-09 00:00:00 Completed [facility] Hep B, Adol or Pedi Dosage 2009-01-09 00:00:00 Completed [facility] MMR 2009-01-09 00:00:00 Completed [facility] Pneumococcal 13 Conjugate, PCV13 (Prevnar 13) 2009-01-09 00:00:00 Completed [facility] Polio (IPV/OPV) 2009-01-09 00:00:00 Completed [facility] Varicella (varivax)(chicken pox) 2009-01-09 00:00:00 Completed [facility] DTAP 2009-01-09 00:00:00 Completed [facility] HIB 3 Dose Schedule 2009-01-09 00:00:00 Completed [facility] HEPATITIS A 2009-01-09 00:00:00 Completed [facility] Hep B, Adol or Pedi Dosage 2009-01-09 00:00:00 Completed [facility] MMR 2009-01-09 00:00:00 Completed [facility] Pneumococcal 13 Conjugate, PCV13 (Prevnar 13) 2009-01-09 00:00:00 Completed [facility] Polio (IPV/OPV) 2009-01-09 00:00:00 Completed [facility] Varicella (varivax)(chicken pox) 2009-01-09 00:00:00 Completed [facility] DTAP 2009-01-09 00:00:00 Completed [facility] HIB 3 Dose Schedule 2009-01-09 00:00:00 Completed [facility] HEPATITIS A 2009-01-09 00:00:00 Completed [facility] Hep B, Adol or Pedi Dosage 2009-01-09 00:00:00 Completed [facility] MMR 2009-01-09 00:00:00 Completed [facility] Pneumococcal 13 Conjugate, PCV13 (Prevnar 13) 2009-01-09 00:00:00 Completed [facility] Polio (IPV/OPV) 2009-01-09 00:00:00 Completed [facility] Varicella (varivax)(chicken pox) 2009-01-09 00:00:00 Completed [facility] DTAP 2009-01-09 00:00:00 Completed [facility] HIB 3 Dose Schedule 2009-01-09 00:00:00 Completed [facility] HEPATITIS A 2009-01-09 00:00:00 Completed [facility] Hep B, Adol or Pedi Dosage 2009-01-09 00:00:00 Completed [facility] MMR 2009-01-09 00:00:00 Completed [facility] Pneumococcal 13 Conjugate, PCV13 (Prevnar 13) 2009-01-09 00:00:00 Completed [facility] Polio (IPV/OPV) 2009-01-09 00:00:00 Completed [facility] Varicella (varivax)(chicken pox) 2009-01-09 00:00:00 Completed [facility] DTAP 2009-01-09 00:00:00 Completed [facility] HIB 3 Dose Schedule 2009-01-09 00:00:00 Completed [facility] HEPATITIS A 2009-01-09 00:00:00 Completed [facility] Hep B, Adol or Pedi Dosage 2009-01-09 00:00:00 Completed [facility] MMR 2009-01-09 00:00:00 Completed [facility] Pneumococcal 13 Conjugate, PCV13 (Prevnar 13) 2009-01-09 00:00:00 Completed [facility] Polio (IPV/OPV) 2009-01-09 00:00:00 Completed [facility] Varicella (varivax)(chicken pox) 2009-01-09 00:00:00 Completed [facility] DTAP 2009-01-09 00:00:00 Completed [facility] HIB 3 Dose Schedule 2009-01-09 00:00:00 Completed [facility] HEPATITIS A 2009-01-09 00:00:00 Completed [facility] Hep B, Adol or Pedi Dosage 2009-01-09 00:00:00 Completed [facility] MMR 2009-01-09 00:00:00 Completed [facility] Pneumococcal 13 Conjugate, PCV13 (Prevnar 13) 2009-01-09 00:00:00 Completed [facility] Polio (IPV/OPV) 2009-01-09 00:00:00 Completed [facility] Varicella (varivax)(chicken pox) 2009-01-09 00:00:00 Completed [facility] DTAP 2009-01-09 00:00:00 Completed [facility] HIB 3 Dose Schedule 2009-01-09 00:00:00 Completed [facility] HEPATITIS A 2009-01-09 00:00:00 Completed [facility] Hep B, Adol or Pedi Dosage 2009-01-09 00:00:00 Completed [facility] MMR 2009-01-09 00:00:00 Completed [facility] Pneumococcal 13 Conjugate, PCV13 (Prevnar 13) 2009-01-09 00:00:00 Completed [facility] Polio (IPV/OPV) 2009-01-09 00:00:00 Completed [facility] Varicella (varivax)(chicken pox) 2009-01-09 00:00:00 Completed [facility] DTAP 2009-01-09 00:00:00 Completed [facility] HIB 3 Dose Schedule 2009-01-09 00:00:00 Completed [facility] HEPATITIS A 2009-01-09 00:00:00 Completed [facility] Hep B, Adol or Pedi Dosage 2009-01-09 00:00:00 Completed [facility] MMR 2009-01-09 00:00:00 Completed [facility] Pneumococcal 13 Conjugate, PCV13 (Prevnar 13) 2009-01-09 00:00:00 Completed [facility] Polio (IPV/OPV) 2009-01-09 00:00:00 Completed [facility] Varicella (varivax)(chicken pox) 2009-01-09 00:00:00 Completed [facility] DTAP 2009-01-09 00:00:00 Completed [facility] HIB 3 Dose Schedule 2009-01-09 00:00:00 Completed [facility] HEPATITIS A 2009-01-09 00:00:00 Completed [facility] Hep B, Adol or Pedi Dosage 2009-01-09 00:00:00 Completed [facility] MMR 2009-01-09 00:00:00 Completed [facility] Pneumococcal 13 Conjugate, PCV13 (Prevnar 13) 2009-01-09 00:00:00 Completed [facility] Polio (IPV/OPV) 2009-01-09 00:00:00 Completed [facility] Varicella (varivax)(chicken pox) 2009-01-09 00:00:00 Completed [facility] DTAP 2009-01-09 00:00:00 Completed [facility] HIB 3 Dose Schedule 2009-01-09 00:00:00 Completed [facility] HEPATITIS A 2009-01-09 00:00:00 Completed [facility] Hep B, Adol or Pedi Dosage 2009-01-09 00:00:00 Completed [facility] MMR 2009-01-09 00:00:00 Completed [facility] Pneumococcal 13 Conjugate, PCV13 (Prevnar 13) 2009-01-09 00:00:00 Completed [facility] Polio (IPV/OPV) 2009-01-09 00:00:00 Completed [facility] Varicella (varivax)(chicken pox) 2009-01-09 00:00:00 Completed [facility] DTAP 2009-01-09 00:00:00 Completed [facility] HIB 3 Dose Schedule 2009-01-09 00:00:00 Completed [facility] HEPATITIS A 2009-01-09 00:00:00 Completed [facility] Hep B, Adol or Pedi Dosage 2009-01-09 00:00:00 Completed [facility] MMR 2009-01-09 00:00:00 Completed [facility] Pneumococcal 13 Conjugate, PCV13 (Prevnar 13) 2009-01-09 00:00:00 Completed [facility] Polio (IPV/OPV) 2009-01-09 00:00:00 Completed [facility] Varicella (varivax)(chicken pox) 2009-01-09 00:00:00 Completed [facility] DTAP 2009-01-09 00:00:00 Completed [facility] HIB 3 Dose Schedule 2009-01-09 00:00:00 Completed [facility] HEPATITIS A 2009-01-09 00:00:00 Completed [facility] Hep B, Adol or Pedi Dosage 2009-01-09 00:00:00 Completed [facility] MMR 2009-01-09 00:00:00 Completed [facility] Pneumococcal 13 Conjugate, PCV13 (Prevnar 13) 2009-01-09 00:00:00 Completed [facility] Polio (IPV/OPV) 2009-01-09 00:00:00 Completed [facility] Varicella (varivax)(chicken pox) 2009-01-09 00:00:00 Completed [facility] DTAP 2009-01-09 00:00:00 Completed [facility] HIB 3 Dose Schedule 2009-01-09 00:00:00 Completed [facility] HEPATITIS A 2009-01-09 00:00:00 Completed [facility] Hep B, Adol or Pedi Dosage 2009-01-09 00:00:00 Completed [facility] MMR 2009-01-09 00:00:00 Completed [facility] Pneumococcal 13 Conjugate, PCV13 (Prevnar 13) 2009-01-09 00:00:00 Completed [facility] Polio (IPV/OPV) 2009-01-09 00:00:00 Completed [facility] Varicella (varivax)(chicken pox) 2009-01-09 00:00:00 Completed [facility] DTAP 2009-01-09 00:00:00 Completed [facility] HIB 3 Dose Schedule 2009-01-09 00:00:00 Completed [facility] HEPATITIS A 2009-01-09 00:00:00 Completed [facility] Hep B, Adol or Pedi Dosage 2009-01-09 00:00:00 Completed [facility] MMR 2009-01-09 00:00:00 Completed [facility] Pneumococcal 13 Conjugate, PCV13 (Prevnar 13) 2009-01-09 00:00:00 Completed [facility] Polio (IPV/OPV) 2009-01-09 00:00:00 Completed [facility] Varicella (varivax)(chicken pox) 2009-01-09 00:00:00 Completed [facility] DTAP 2009-01-09 00:00:00 Completed [facility] HIB 3 Dose Schedule 2009-01-09 00:00:00 Completed [facility] HEPATITIS A 2009-01-09 00:00:00 Completed [facility] Hep B, Adol or Pedi Dosage 2009-01-09 00:00:00 Completed [facility] MMR 2009-01-09 00:00:00 Completed [facility] Pneumococcal 13 Conjugate, PCV13 (Prevnar 13) 2009-01-09 00:00:00 Completed [facility] Polio (IPV/OPV) 2009-01-09 00:00:00 Completed [facility] Varicella (varivax)(chicken pox) 2009-01-09 00:00:00 Completed [facility] DTAP 2009-01-09 00:00:00 Completed [facility] HIB 3 Dose Schedule 2009-01-09 00:00:00 Completed [facility] HEPATITIS A 2009-01-09 00:00:00 Completed [facility] Hep B, Adol or Pedi Dosage 2009-01-09 00:00:00 Completed [facility] MMR 2009-01-09 00:00:00 Completed [facility] Pneumococcal 13 Conjugate, PCV13 (Prevnar 13) 2009-01-09 00:00:00 Completed [facility] Polio (IPV/OPV) 2009-01-09 00:00:00 Completed [facility] Varicella (varivax)(chicken pox) 2009-01-09 00:00:00 Completed [facility] DTAP 2009-01-09 00:00:00 Completed [facility] HIB 3 Dose Schedule 2009-01-09 00:00:00 Completed [facility] HEPATITIS A 2009-01-09 00:00:00 Completed [facility] Hep B, Adol or Pedi Dosage 2009-01-09 00:00:00 Completed [facility] MMR 2009-01-09 00:00:00 Completed [facility] Pneumococcal 13 Conjugate, PCV13 (Prevnar 13) 2009-01-09 00:00:00 Completed [facility] Polio (IPV/OPV) 2009-01-09 00:00:00 Completed [facility] Varicella (varivax)(chicken pox) 2009-01-09 00:00:00 Completed [facility] DTAP 2009-01-09 00:00:00 Completed [facility] HIB 3 Dose Schedule 2009-01-09 00:00:00 Completed [facility] HEPATITIS A 2009-01-09 00:00:00 Completed [facility] Hep B, Adol or Pedi Dosage 2009-01-09 00:00:00 Completed [facility] MMR 2009-01-09 00:00:00 Completed [facility] Pneumococcal 13 Conjugate, PCV13 (Prevnar 13) 2009-01-09 00:00:00 Completed [facility] Polio (IPV/OPV) 2009-01-09 00:00:00 Completed [facility] Varicella (varivax)(chicken pox) 2009-01-09 00:00:00 Completed [facility] DTAP 2009-01-09 00:00:00 Completed [facility] HIB 3 Dose Schedule 2009-01-09 00:00:00 Completed [facility] HEPATITIS A 2009-01-09 00:00:00 Completed [facility] Hep B, Adol or Pedi Dosage 2009-01-09 00:00:00 Completed [facility] MMR 2009-01-09 00:00:00 Completed [facility] Pneumococcal 13 Conjugate, PCV13 (Prevnar 13) 2009-01-09 00:00:00 Completed [facility] Polio (IPV/OPV) 2009-01-09 00:00:00 Completed [facility] Varicella (varivax)(chicken pox) 2009-01-09 00:00:00 Completed [facility] DTAP 2009-01-09 00:00:00 Completed [facility] HIB 3 Dose Schedule 2009-01-09 00:00:00 Completed [facility] HEPATITIS A 2009-01-09 00:00:00 Completed [facility] Hep B, Adol or Pedi Dosage 2009-01-09 00:00:00 Completed [facility] MMR 2009-01-09 00:00:00 Completed [facility] Pneumococcal 13 Conjugate, PCV13 (Prevnar 13) 2009-01-09 00:00:00 Completed [facility] Polio (IPV/OPV) 2009-01-09 00:00:00 Completed [facility] Varicella (varivax)(chicken pox) 2009-01-09 00:00:00 Completed [facility] DTAP 2004 00:00:00 Completed [facility] Polio (IPV/OPV) 2004 00:00:00 Completed [facility] DTAP 2004 00:00:00 Completed [facility] Polio (IPV/OPV) 2004 00:00:00 Completed [facility] DTAP 2004 00:00:00 Completed [facility] Polio (IPV/OPV) 2004 00:00:00 Completed [facility] DTAP 2004 00:00:00 Completed [facility] Polio (IPV/OPV) 2004 00:00:00 Completed [facility] DTAP 2004 00:00:00 Completed [facility] Polio (IPV/OPV) 2004 00:00:00 Completed [facility] DTAP 2004 00:00:00 Completed [facility] Polio (IPV/OPV) 2004 00:00:00 Completed [facility] DTAP 2004 00:00:00 Completed [facility] DTAP 2004 00:00:00 Completed [facility] Polio (IPV/OPV) 2004 00:00:00 Completed [facility] DTAP 2004 00:00:00 Completed [facility] Polio (IPV/OPV) 2004 00:00:00 Completed [facility] Polio (IPV/OPV) 2004 00:00:00 Completed [facility] DTAP 2004 00:00:00 Completed [facility] Polio (IPV/OPV) 2004 00:00:00 Completed [facility] DTAP 2004 00:00:00 Completed [facility] Polio (IPV/OPV) 2004 00:00:00 Completed [facility] DTAP 2004 00:00:00 Completed [facility] DTAP 2004 00:00:00 Completed [facility] Polio (IPV/OPV) 2004 00:00:00 Completed [facility] DTAP 2004 00:00:00 Completed [facility] Polio (IPV/OPV) 2004 00:00:00 Completed [facility] DTAP 2004 00:00:00 Completed [facility] Polio (IPV/OPV) 2004 00:00:00 Completed [facility] Polio (IPV/OPV) 2004 00:00:00 Completed [facility] DTAP 2004 00:00:00 Completed [facility] Polio (IPV/OPV) 2004 00:00:00 Completed [facility] DTAP 2004 00:00:00 Completed [facility] Polio (IPV/OPV) 2004 00:00:00 Completed [facility] DTAP 2004 00:00:00 Completed [facility] Polio (IPV/OPV) 2004 00:00:00 Completed [facility] [facility] DTAP 2004 00:00:00 Completed [facility] Polio (IPV/OPV) 2004 00:00:00 Completed [facility] DTAP 2004 00:00:00 Completed [facility] Polio (IPV/OPV) 2004 00:00:00 Completed [facility] DTAP 2004 00:00:00 Completed [facility] Polio (IPV/OPV) 2004 00:00:00 Completed [facility] DTAP 2004 00:00:00 Completed [facility] Polio (IPV/OPV) 2004 00:00:00 Completed [facility] DTAP 2004 00:00:00 Completed [facility] Polio (IPV/OPV) 2004 00:00:00 Completed [facility] DTAP 2004 00:00:00 Completed [facility] Polio (IPV/OPV) 2004 00:00:00 Completed [facility] DTAP 2004 00:00:00 Completed [facility] Polio (IPV/OPV) 2004 00:00:00 Completed [facility] DTAP 2004 00:00:00 Completed [facility] Polio (IPV/OPV) 2004 00:00:00 Completed [facility] DTAP 2004 00:00:00 Completed [facility] Polio (IPV/OPV) 2004 00:00:00 Completed [facility] DTAP 2004 00:00:00 Completed [facility] Polio (IPV/OPV) 2004 00:00:00 Completed [facility] DTAP 2004 00:00:00 Completed [facility] Polio (IPV/OPV) 2004 00:00:00 Completed [facility] DTAP 2004 00:00:00 Completed [facility] Polio (IPV/OPV) 2004 00:00:00 Completed [facility] DTAP 2004 00:00:00 Completed [facility] Polio (IPV/OPV) 2004 00:00:00 Completed [facility] DTAP 2004 00:00:00 Completed [facility] Polio (IPV/OPV) 2004 00:00:00 Completed [facility] DTAP 2004 00:00:00 Completed [facility] Polio (IPV/OPV) 2004 00:00:00 Completed [facility] DTAP 2004 00:00:00 Completed [facility] Polio (IPV/OPV) 2004 00:00:00 Completed [facility] DTAP 2004 00:00:00 Completed [facility] Polio (IPV/OPV) 2004 00:00:00 Completed [facility] DTAP 2004 00:00:00 Completed [facility] Polio (IPV/OPV) 2004 00:00:00 Completed [facility] DTAP 2004 00:00:00 Completed [facility] Polio (IPV/OPV) 2004 00:00:00 Completed [facility] DTAP 2004 00:00:00 Completed [facility] Polio (IPV/OPV) 2004 00:00:00 Completed [facility] DTAP 2004 00:00:00 Completed [facility] Polio (IPV/OPV) 2004 00:00:00 Completed [facility] DTAP 2004 00:00:00 Completed [facility] Polio (IPV/OPV) 2004 00:00:00 Completed [facility] DTAP 2004 00:00:00 Completed [facility] Polio (IPV/OPV) 2004 00:00:00 Completed [facility] DTAP 2004 00:00:00 Completed [facility] Polio (IPV/OPV) 2004 00:00:00 Completed [facility] DTAP 2004 00:00:00 Completed [facility] Polio (IPV/OPV) 2004 00:00:00 Completed [facility] DTAP 2004 00:00:00 Completed [facility] DTAP 2004 00:00:00 Completed [facility] Polio (IPV/OPV) 2004 00:00:00 Completed [facility] DTAP 2004 00:00:00 Completed [facility] Polio (IPV/OPV) 2004 00:00:00 Completed [facility] Polio (IPV/OPV) 2004 00:00:00 Completed [facility] DTAP 2004 00:00:00 Completed [facility] Polio (IPV/OPV) 2004 00:00:00 Completed [facility] DTAP 2004 00:00:00 Completed [facility] Polio (IPV/OPV) 2004 00:00:00 Completed [facility] DTAP 2004 00:00:00 Completed [facility] DTAP 2004 00:00:00 Completed [facility] Polio (IPV/OPV) 2004 00:00:00 Completed [facility] DTAP 2004 00:00:00 Completed [facility] Polio (IPV/OPV) 2004 00:00:00 Completed [facility] DTAP 2004 00:00:00 Completed [facility] Polio (IPV/OPV) 2004 00:00:00 Completed [facility] Polio (IPV/OPV) 2004 00:00:00 Completed [facility] DTAP 2004 00:00:00 Completed [facility] Polio (IPV/OPV) 2004 00:00:00 Completed [facility] DTAP 2004 00:00:00 Completed [facility] Polio (IPV/OPV) 2004 00:00:00 Completed [facility] DTAP 2004 00:00:00 Completed [facility] Polio (IPV/OPV) 2004 00:00:00 Completed [facility] DTAP 2004 00:00:00 Completed [facility] Polio (IPV/OPV) 2004 00:00:00 Completed [facility] DTAP 2004 00:00:00 Completed [facility] Polio (IPV/OPV) 2004 00:00:00 Completed [facility] DTAP 2004 00:00:00 Completed [facility] Polio (IPV/OPV) 2004 00:00:00 Completed [facility] DTAP 2004 00:00:00 Completed [facility] Polio (IPV/OPV) 2004 00:00:00 Completed [facility] DTAP 2004 00:00:00 Completed [facility] Polio (IPV/OPV) 2004 00:00:00 Completed [facility] DTAP 2004 00:00:00 Completed [facility] Polio (IPV/OPV) 2004 00:00:00 Completed [facility] DTAP 2004 00:00:00 Completed [facility] Polio (IPV/OPV) 2004 00:00:00 Completed [facility] DTAP 2004 00:00:00 Completed [facility] Polio (IPV/OPV) 2004 00:00:00 Completed [facility] DTAP 2004 00:00:00 Completed [facility] Polio (IPV/OPV) 2004 00:00:00 Completed [facility] DTAP 2004 00:00:00 Completed [facility] Polio (IPV/OPV) 2004 00:00:00 Completed [facility] DTAP 2004 00:00:00 Completed [facility] Polio (IPV/OPV) 2004 00:00:00 Completed [facility] DTAP 2004 00:00:00 Completed [facility] Polio (IPV/OPV) 2004 00:00:00 Completed [facility] DTAP 2004 00:00:00 Completed [facility] Polio (IPV/OPV) 2004 00:00:00 Completed [facility] DTAP 2004 00:00:00 Completed [facility] Polio (IPV/OPV) 2004 00:00:00 Completed [facility] DTAP 2004 00:00:00 Completed [facility] Polio (IPV/OPV) 2004 00:00:00 Completed [facility] DTAP 2004 00:00:00 Completed [facility] Polio (IPV/OPV) 2004 00:00:00 Completed [facility] DTAP 2004 00:00:00 Completed [facility] Polio (IPV/OPV) 2004 00:00:00 Completed [facility] DTAP 2004 00:00:00 Completed [facility] Polio (IPV/OPV) 2004 00:00:00 Completed [facility] DTAP 2004 00:00:00 Completed [facility] Polio (IPV/OPV) 2004 00:00:00 Completed [facility] DTAP 2004 00:00:00 Completed [facility] Hep B, Adol or Pedi Dosage 2004 00:00:00 Completed [facility] Polio (IPV/OPV) 2004 00:00:00 Completed [facility] DTAP 2004 00:00:00 Completed [facility] Hep B, Adol or Pedi Dosage 2004 00:00:00 Completed [facility] Polio (IPV/OPV) 2004 00:00:00 Completed [facility] DTAP 2004 00:00:00 Completed [facility] Hep B, Adol or Pedi Dosage 2004 00:00:00 Completed [facility] Polio (IPV/OPV) 2004 00:00:00 Completed [facility] DTAP 2004 00:00:00 Completed [facility] Hep B, Adol or Pedi Dosage 2004 00:00:00 Completed [facility] Polio (IPV/OPV) 2004 00:00:00 Completed [facility] DTAP 2004 00:00:00 Completed [facility] Hep B, Adol or Pedi Dosage 2004 00:00:00 Completed [facility] Polio (IPV/OPV) 2004 00:00:00 Completed [facility] DTAP 2004 00:00:00 Completed [facility] Hep B, Adol or Pedi Dosage 2004 00:00:00 Completed [facility] DTAP 2004 00:00:00 Completed [facility] Polio (IPV/OPV) 2004 00:00:00 Completed [facility] DTAP 2004 00:00:00 Completed [facility] Hep B, Adol or Pedi Dosage 2004 00:00:00 Completed [facility] Polio (IPV/OPV) 2004 00:00:00 Completed [facility] DTAP 2004 00:00:00 Completed [facility] Hep B, Adol or Pedi Dosage 2004 00:00:00 Completed [facility] Polio (IPV/OPV) 2004 00:00:00 Completed [facility] Hep B, Adol or Pedi Dosage 2004 00:00:00 Completed [facility] Polio (IPV/OPV) 2004 00:00:00 Completed [facility] DTAP 2004 00:00:00 Completed [facility] Hep B, Adol or Pedi Dosage 2004 00:00:00 Completed [facility] Polio (IPV/OPV) 2004 00:00:00 Completed [facility] DTAP 2004 00:00:00 Completed [facility] Hep B, Adol or Pedi Dosage 2004 00:00:00 Completed [facility] Polio (IPV/OPV) 2004 00:00:00 Completed [facility] DTAP 2004 00:00:00 Completed [facility] DTAP 2004 00:00:00 Completed [facility] Hep B, Adol or Pedi Dosage 2004 00:00:00 Completed [facility] Polio (IPV/OPV) 2004 00:00:00 Completed [facility] DTAP 2004 00:00:00 Completed [facility] Hep B, Adol or Pedi Dosage 2004 00:00:00 Completed [facility] Hep B, Adol or Pedi Dosage 2004 00:00:00 Completed [facility] Polio (IPV/OPV) 2004 00:00:00 Completed [facility] Polio (IPV/OPV) 2004 00:00:00 Completed [facility] DTAP 2004 00:00:00 Completed [facility] Hep B, Adol or Pedi Dosage 2004 00:00:00 Completed [facility] Polio (IPV/OPV) 2004 00:00:00 Completed [facility] DTAP 2004 00:00:00 Completed [facility] Hep B, Adol or Pedi Dosage 2004 00:00:00 Completed [facility] Polio (IPV/OPV) 2004 00:00:00 Completed [facility] DTAP 2004 00:00:00 Completed [facility] Hep B, Adol or Pedi Dosage 2004 00:00:00 Completed [facility] Polio (IPV/OPV) 2004 00:00:00 Completed [facility] DTAP 2004 00:00:00 Completed [facility] Hep B, Adol or Pedi Dosage 2004 00:00:00 Completed [facility] Polio (IPV/OPV) 2004 00:00:00 Completed [facility] DTAP 2004 00:00:00 Completed [facility] Hep B, Adol or Pedi Dosage 2004 00:00:00 Completed [facility] Polio (IPV/OPV) 2004 00:00:00 Completed [facility] DTAP 2004 00:00:00 Completed [facility] Hep B, Adol or Pedi Dosage 2004 00:00:00 Completed [facility] Polio (IPV/OPV) 2004 00:00:00 Completed [facility] DTAP 2004 00:00:00 Completed [facility] Hep B, Adol or Pedi Dosage 2004 00:00:00 Completed [facility] Polio (IPV/OPV) 2004 00:00:00 Completed [facility] DTAP 2004 00:00:00 Completed [facility] Hep B, Adol or Pedi Dosage 2004 00:00:00 Completed [facility] Polio (IPV/OPV) 2004 00:00:00 Completed [facility] DTAP 2004 00:00:00 Completed [facility] Hep B, Adol or Pedi Dosage 2004 00:00:00 Completed [facility] Polio (IPV/OPV) 2004 00:00:00 Completed [facility] DTAP 2004 00:00:00 Completed [facility] Hep B, Adol or Pedi Dosage 2004 00:00:00 Completed [facility] Polio (IPV/OPV) 2004 00:00:00 Completed [facility] DTAP 2004 00:00:00 Completed [facility] Hep B, Adol or Pedi Dosage 2004 00:00:00 Completed [facility] Polio (IPV/OPV) 2004 00:00:00 Completed [facility] DTAP 2004 00:00:00 Completed [facility] Hep B, Adol or Pedi Dosage 2004 00:00:00 Completed [facility] Polio (IPV/OPV) 2004 00:00:00 Completed [facility] DTAP 2004 00:00:00 Completed [facility] Hep B, Adol or Pedi Dosage 2004 00:00:00 Completed [facility] Polio (IPV/OPV) 2004 00:00:00 Completed [facility] DTAP 2004 00:00:00 Completed [facility] Hep B, Adol or Pedi Dosage 2004 00:00:00 Completed [facility] Polio (IPV/OPV) 2004 00:00:00 Completed [facility] DTAP 2004 00:00:00 Completed [facility] Hep B, Adol or Pedi Dosage 2004 00:00:00 Completed [facility] Polio (IPV/OPV) 2004 00:00:00 Completed [facility] DTAP 2004 00:00:00 Completed [facility] Hep B, Adol or Pedi Dosage 2004 00:00:00 Completed [facility] Polio (IPV/OPV) 2004 00:00:00 Completed [facility] DTAP 2004 00:00:00 Completed [facility] Hep B, Adol or Pedi Dosage 2004 00:00:00 Completed [facility] Polio (IPV/OPV) 2004 00:00:00 Completed [facility] DTAP 2004 00:00:00 Completed [facility] Hep B, Adol or Pedi Dosage 2004 00:00:00 Completed [facility] Polio (IPV/OPV) 2004 00:00:00 Completed [facility] DTAP 2004 00:00:00 Completed [facility] Hep B, Adol or Pedi Dosage 2004 00:00:00 Completed [facility] Polio (IPV/OPV) 2004 00:00:00 Completed [facility] DTAP 2004 00:00:00 Completed [facility] Hep B, Adol or Pedi Dosage 2004 00:00:00 Completed [facility] Polio (IPV/OPV) 2004 00:00:00 Completed [facility] DTAP 2004 00:00:00 Completed [facility] Hep B, Adol or Pedi Dosage 2004 00:00:00 Completed [facility] Polio (IPV/OPV) 2004 00:00:00 Completed [facility] DTAP 2004 00:00:00 Completed [facility] Hep B, Adol or Pedi Dosage 2004 00:00:00 Completed [facility] Polio (IPV/OPV) 2004 00:00:00 Completed [facility] DTAP 2004 00:00:00 Completed [facility] Hep B, Adol or Pedi Dosage 2004 00:00:00 Completed [facility] Polio (IPV/OPV) 2004 00:00:00 Completed [facility] Hep B, Adol or Pedi Dosage 2004 00:00:00 Completed [facility] Hep B, Adol or Pedi Dosage 2004 00:00:00 Completed [facility] Hep B, Adol or Pedi Dosage 2004 00:00:00 Completed [facility] Hep B, Adol or Pedi Dosage 2004 00:00:00 Completed [facility] Hep B, Adol or Pedi Dosage 2004 00:00:00 Completed [facility] Hep B, Adol or Pedi Dosage 2004 00:00:00 Completed [facility] Hep B, Adol or Pedi Dosage 2004 00:00:00 Completed [facility] Hep B, Adol or Pedi Dosage 2004 00:00:00 Completed [facility] Hep B, Adol or Pedi Dosage 2004 00:00:00 Completed [facility] Hep B, Adol or Pedi Dosage 2004 00:00:00 Completed [facility] Hep B, Adol or Pedi Dosage 2004 00:00:00 Completed [facility] Hep B, Adol or Pedi Dosage 2004 00:00:00 Completed [facility] Hep B, Adol or Pedi Dosage 2004 00:00:00 Completed [facility] Hep B, Adol or Pedi Dosage 2004 00:00:00 Completed [facility] Hep B, Adol or Pedi Dosage 2004 00:00:00 Completed [facility] Hep B, Adol or Pedi Dosage 2004 00:00:00 Completed [facility] Hep B, Adol or Pedi Dosage 2004 00:00:00 Completed [facility] Hep B, Adol or Pedi Dosage 2004 00:00:00 Completed [facility] Hep B, Adol or Pedi Dosage 2004 00:00:00 Completed [facility] Hep B, Adol or Pedi Dosage 2004 00:00:00 Completed [facility] Hep B, Adol or Pedi Dosage 2004 00:00:00 Completed [facility] Hep B, Adol or Pedi Dosage 2004 00:00:00 Completed [facility] Hep B, Adol or Pedi Dosage 2004 00:00:00 Completed [facility] Hep B, Adol or Pedi Dosage 2004 00:00:00 Completed [facility] Hep B, Adol or Pedi Dosage 2004 00:00:00 Completed [facility] Hep B, Adol or Pedi Dosage 2004 00:00:00 Completed [facility] Hep B, Adol or Pedi Dosage 2004 00:00:00 Completed [facility] Hep B, Adol or Pedi Dosage 2004 00:00:00 Completed [facility] Hep B, Adol or Pedi Dosage 2004 00:00:00 Completed [facility] Hep B, Adol or Pedi Dosage 2004 00:00:00 Completed [facility] Hep B, Adol or Pedi Dosage 2004 00:00:00 Completed [facility] Hep B, Adol or Pedi Dosage 2004 00:00:00 Completed [facility] Hep B, Adol or Pedi Dosage 2004 00:00:00 Completed [facility] Hep B, Adol or Pedi Dosage 2004 00:00:00 Completed [facility] Hep B, Adol or Pedi Dosage 2004 00:00:00 Completed [facility] Hep B, Adol or Pedi Dosage 2004 00:00:00 Completed [facility] Hep B, Adol or Pedi Dosage 2004 00:00:00 Completed [facility] HPV 9 (Human Papillomavirus) Unknown Completed [facility] - External Influenza Virus Vaccine, No Preserv, age 6 months and up Unknown [facility], [facility]able, Mdck, Preservative Free, Quadrivalent Unknown Completed [facility] - External Bexsero (Meningococcal Group B) Unknown Completed [facility] External Meningococcal Vaccine- Conjugate(Menactra) Unknown Completed [facility] External MMR- Measles, Mumps, Rubella Unknown Completed [facility] External Pneumococcal Vaccine, Conjugate 13 Unknown Completed [facility] External Polio Vaccine Unknown Completed [facility] External Tdap- (Boostrix, Adacel) Unknown Completed [facility] External Varicella [facility]ine Unknown [facility] Hep[facility] B, Adolescent Or Pediatric Unknown Completed [facility] External HEPATITIS A- PEDI/ADOL Unknown Completed [facility] External HIB PRP-OMP (Pedvax) Unknown Completed [facility] External HPV 9 (Human Papillomavirus) Unknown Completed [facility] - External Influenza Virus Vaccine, No Preserv, age 6 months and up Unknown [facility] Influenza, Injectable, Mdck, Preservative Free, Quadrivalent Unknown Completed [facility] External Bexsero (Meningococcal Group B) Unknown Completed [facility] External Meningococcal Vaccine- Conjugate(Menactra) Unknown Completed [facility] External MMR- Measles, Mumps, Rubella Unknown Completed [facility] External Pneumococcal Vaccine, Conjugate 13 Unknown Completed [facility] External Polio Vaccine Unknown Completed [facility] External Tdap- (Boostrix, Adacel) Unknown Completed [facility] External Varicella Vaccine Unknown [facility]P [facility] Hepatitis B, Adolescent Or Pediatric Unknown Completed [facility] - External HEPATITIS A- PEDI/ADOL Unknown Completed [facility] External HIB PRP-OMP (Pedvax) Unknown Completed [facility] External HPV 9 (Human Papillomavirus) Unknown Completed [facility] - External Influenza Virus Vaccine, No Preserv, age 6 months and up Unknown Completed [facility] - External Influenza, Injectable, Mdck, Preservative Free, Quadrivalent Unknown Completed [facility] External Bexsero (Meningococcal Group B) Unknown Completed [facility] External Meningococcal Vaccine- Conjugate(Menactra) Unknown [facility] MMR- Measles, Mumps, Rubella Unknown Completed [facility] - External Pneumococcal Vaccine, Conjugate 13 Unknown Completed [facility] External Polio Vaccine Unknown Completed [facility] External Tdap- (Boostrix, Adacel) Unknown Completed [facility] External [facility]ine [facility] External Hepatitis B, Adolescent Or Pediatric Unknown Completed [facility] External HEPATITIS A- PEDI/ADOL Unknown Completed [facility] External HIB PRP-OMP (Pedvax) Unknown Completed [facility] External HPV 9 (Human Papillomavirus) Unknown Completed [facility] - External Influenza Virus Vaccine, No Preserv, age 6 months and up Unknown Completed [facility] External Influenza, Injectable, Mdck, Preservative Free, Quadrivalent Unknown Completed [facility] External Bexsero (Meningococcal Group B) Unknown Completed [facility] External Meningococcal Vaccine- Conjugate(Menactra) Unknown Completed [facility] External MMR- Measles, Mumps, Rubella Unknown Completed [facility] External Pneumococcal Vaccine, Conjugate 13 Unknown Completed [facility] External Polio Vaccine Unknown Completed [facility] External Tdap- (Boostrix, Adacel) Unknown Completed [facility] External Varicella Vaccine Unknown Completed [facility] - External DTaP Unknown Completed [facility] External Hepatitis B, Adolescent Or Pediatric Unknown Completed [facility] External HEPATITIS A- PEDI/ADOL Unknown Completed [facility] External HIB PRP-OMP (Pedvax) Unknown Completed [facility] External HPV 9 (Human Papillomavirus) Unknown Completed [facility] - External Influenza Virus Vaccine, No Preserv, age 6 months and up Unknown [facility], Injectable, Mdck, Preservative Free, Quadrivalent Unknown Completed [facility] - External Bexsero (Meningococcal Group B) Unknown Completed [facility] External Meningococcal Vaccine- Conjugate(Menactra) Unknown Completed [facility] External MMR- Measles, Mumps, Rubella Unknown Completed [facility] - External Pneumococcal Vaccine, Conjugate 13 Unknown Completed [facility] External Polio Vaccine Unknown Completed [facility] External Tdap- (Boostrix, Adacel) Unknown Completed [facility] External Varicella Vaccine Unknown [facility]P [facility] Completed [facility] rosa - External Hepatitis B, Adolescent Or Pediatric Unknown Completed [facility] External HEPATITIS A- PEDI/ADOL Unknown Completed [facility] External HIB PRP-OMP (Pedvax) Unknown Completed [facility] External HPV 9 (Human Papillomavirus) Unknown Completed [facility] - External Influenza Virus Vaccine, No Preserv, age 6 months and up Unknown Completed [facility] External Influenza, Injectable, Mdck, Preservative Free, Quadrivalent Unknown Completed [facility] External Bexsero (Meningococcal Group B) Unknown Completed [facility] External Meningococcal Vaccine- Conjugate(Menactra) Unknown Completed [facility] External MMR- Measles, Mumps, Rubella Unknown Completed [facility] External Pneumococcal Vaccine, Conjugate 13 Unknown Completed [facility] External Polio Vaccine Unknown Completed [facility] External Tdap- (Boostrix, Adacel) Unknown Completed [facility] External [facility]icella Vaccine [facility] Com[facility] rosa - External DTaP Unknown Completed [facility] External Hepatitis B, Adolescent Or Pediatric Unknown Completed [facility] External HEPATITIS A- PEDI/ADOL Unknown Completed [facility] External HIB PRP-OMP (Pedvax) Unknown Completed [facility] External HPV 9 (Human Papillomavirus) Unknown Completed [facility] - External Hepatitis B, Adolescent Or Pediatric Unknown Completed [facility] External Influenza Virus Vaccine, No Preserv, age 6 months and up Unknown Completed [facility] External Influenza, Injectable, Mdck, Preservative Free, Quadrivalent Unknown Completed [facility] External Bexsero (Meningococcal Group B) Unknown Completed [facility] External Meningococcal Vaccine- Conjugate(Menactra) Unknown Completed [facility] Villegas [facility] - External MMR- Measles, Mumps, Rubella Unknown Completed [facility] External Pneumococcal Vaccine, Conjugate 13 Unknown Completed [facility] External Polio Vaccine Unknown Completed [facility] External Tdap- (Boostrix, Adacel) Unknown Completed [facility] External [facility]ella [facility]ine [facility] Vaccine, age 6 months and up Unknown [facility] HEPATITIS A- PEDI/ADOL Unknown Completed [facility] External HIB PRP-OMP (Pedvax) Unknown [facility] HPV 9 (Human Papillomavirus) Unknown Completed [facility] - External Influenza Virus Vaccine, No Preserv, age 6 months and up Unknown [facility] Influenza, Injectable, Mdck, Preservative Free, Quadrivalent Unknown [facility] Bexsero (Meningococcal Group B) Unknown Completed [facility] External Meningococcal Vaccine- Conjugate(Menactra) Unknown Completed Maribell Villegas [facility] External MMR- Measles, Mumps, Rubella Unknown Completed [facility] External Pneumococcal Vaccine, Conjugate 13 Unknown Completed [facility] External Polio Vaccine Unknown Completed [facility] External Tdap- (Boostrix, Adacel) Unknown Completed [facility] External Varicella Vaccine Unknown Completed [facility] - External DTaP Unknown Completed [facility]ell lee - External Hepatitis B, Adolescent Or Pediatric Unknown Completed [facility] - External HEPATITIS A- PEDI/ADOL Unknown Completed [facility] External HIB PRP-OMP (Pedvax) Unknown Completed [facility] External Vital Signs Vital Name Observation Time Observation Value Comments S rajeev Systolic blood pressure 2024-11-28 16:59:00 102 mm[Hg] [facility] - External Diastolic blood pressure 2024-11-28 16:59:00 68 mm[Hg] [facility] 2024-11-28 16:59:00 82 /min [facility]ell[facility]ully [facility] - External Body temperature 2024-11-28 16:59:00 36.11 Madeline [facility] - External Respiratory rate 2024-11-28 16:59:00 18 /min [facility] - External Body height 2024-11-28 16:59:00 193 cm [facility] - External Body weight 2024-11-28 16:59:00 110.678 kg [facility] - External BMI 2024-11-28 16:59:00 29.70 kg/m2 [facility] - External Oxygen saturation in Arterial blood by Pulse oximetry 2024-11-28 16:59:00 98 /min [facility] - External Systolic blood pressure 2024-06-21 20:33:00 114 mm[Hg] [facility] - External Diastolic blood pressure 2024-06-21 20:33:00 72 mm[Hg] [facility] - External Heart rate 2024-06-21 20:33:00 80 /min [facility] - External Body temperature 2024-06-21 20:33:00 36.83 Madeline [facility] - External Respiratory rate 2024-06-21 20:33:00 15 /min [facility] - External Body height 2024-06-21 20:33:00 193 cm [facility] - External Body weight 2024-06-21 20:33:00 113.399 kg [facility] - External BMI 2024-06-21 20:33:00 30.43 kg/m2 [facility] - External Systolic blood pressure 2024-05-24 13:58:00 110 mm[Hg] [facility] - External Diastolic blood pressure 2024-05-24 13:58:00 74 mm[Hg] [facility] - External Heart rate 2024-05-24 13:58:00 78 /min [facility] - External Body temperature 2024-05-24 13:58:00 35.78 Madeline [facility] - External Respiratory rate 2024-05-24 13:58:00 15 /min [facility] - External Body height 2024-05-24 13:58:00 193 cm [facility] - External Body weight 2024-05-24 13:58:00 118.389 kg [facility]ell [facility] - External BMI 2024-05-24 13:58:00 31.77 kg/m2 [facility] - External Systolic blood pressure 2024-03-15 16:41:00 119 mm[Hg] [facility] Seybold - External Diastolic blood pressure 2024-03-15 16:41:00 75 mm[Hg] [facility] - External Heart rate 2024-03-15 16:41:00 70 /min [facility]ell Seybold - External Body temperature 2024-03-15 16:41:00 36.06 Madeline [facility]ell [facility] - External Respiratory rate 2024-03-15 16:41:00 15 /min [facility] Seybold - External Body height 2024-03-15 16:41:00 193 cm [facility]ell Sey[facility] - External Body weight 2024-03-15 16:41:00 121.564 kg [facility]ell Seybold - External BMI 2024-03-15 16:41:00 32.62 kg/m2 [facility] Seybold - External Systolic blood pressure 2024-02-04 14:30:00 102 mm[Hg] [facility] Seybold - External Diastolic blood pressure 2024-02-04 14:30:00 66 mm[Hg] [facility] - External Heart rate 2024-02-04 14:30:00 78 /min [facility]ell Seybold - External Body temperature 2024-02-04 14:30:00 36.78 Madeline Mar[facility]ell [facility]bold - External Respiratory rate 2024-02-04 14:30:00 20 /min [facility]ell Seybold - External Body height 2024-02-04 14:30:00 193 cm [facility]ell Seybold - External Body weight 2024-02-04 14:30:00 117.028 kg [facility]ell Seybold - External BMI 2024-02-04 14:30:00 31.40 kg/m2 [facility] Seybold - External Oxygen saturation in Arterial blood by Pulse oximetry 2024-02-04 14:30:00 100 /min Mar[facility]ell Seybold - External Systolic blood pressure 2024-01-01 22:00:00 116 mm[Hg] [facility]ell Seybold - External Diastolic blood pressure 2024-01-01 22:00:00 68 mm[Hg] [facility] Seybold - External Heart rate 2024-01-01 22:00:00 72 /min [facility]ell Seybold - External Body temperature 2024-01-01 22:00:00 36.78 Madeline [facility] - External Respiratory rate 2024-01-01 22:00:00 16 /min [facility] - External Body height 2024-01-01 22:00:00 193 cm [facility]ell [facility] - External Body weight 2024-01-01 22:00:00 115.327 kg [facility]ell [facility] - External BMI 2024-01-01 22:00:00 30.95 kg/m2 [facility] - External Oxygen saturation in Arterial blood by Pulse oximetry 2024-01-01 22:00:00 98 /min Mar[facility]ell [facility] - External Systolic blood pressure 2022-10-10 20:00:00 115 mm[Hg] [facility] Diastolic blood pressure 2022-10-10 20:00:00 81 mm[Hg] [facility] Heart rate 2022-10-10 20:00:00 67 /min [facility] Body temperature 2022-10-10 20:00:00 36.44 Madeline [facility] Body height 2022-10-10 20:00:00 193 cm [facility] Body weight 2022-10-10 20:00:00 111.948 kg [facility] BMI 2022-10-10 20:00:00 30.04 kg/m2 [facility] Body mass index (BMI) [Percentile] Per age and sex 2022-10-10 20:00:00 95.97 % [facility] Oxygen saturation in Arterial blood by Pulse oximetry 2022-10-10 20:00:00 98 /min [facility] Systolic blood pressure 2021-06-18 19:19:00 125 mm[Hg] [facility] Diastolic blood pressure 2021-06-18 19:19:00 71 mm[Hg] [facility] Heart rate 2021-06-18 19:19:00 90 /min [facility] Body temperature 2021-06-18 19:19:00 36.72 Madeline [facility] Respiratory rate 2021-06-18 19:19:00 18 /min [facility] Body weight 2021-06-18 19:19:00 112.719 kg [facility] Oxygen saturation in Arterial blood by Pulse oximetry 2021-06-18 19:19:00 98 /min [facility] Systolic blood pressure 2021-05-31 18:37:00 119 mm[Hg] [facility] Diastolic blood pressure 2021-05-31 18:37:00 76 mm[Hg] [facility] Heart rate 2021-05-31 18:37:00 78 /min [facility] Body temperature 2021-05-31 18:37:00 36.61 Madeline [facility] Respiratory rate 2021-05-31 18:37:00 18 /min [facility] Body height 2021-05-31 18:37:00 193 cm [facility] Body weight 2021-05-31 18:37:00 113.456 kg [facility] BMI 2021-05-31 18:37:00 30.45 kg/m2 [facility] Oxygen saturation in Arterial blood by Pulse oximetry 2021-05-31 18:37:00 98 /min [facility] Systolic blood pressure 2021-04-24 15:03:00 115 mm[Hg] [facility] Diastolic blood pressure 2021-04-24 15:03:00 73 mm[Hg] [facility] Heart rate 2021-04-24 15:03:00 75 /min [facility] Body temperature 2021-04-24 15:03:00 36.56 Madeline [facility] Respiratory rate 2021-04-24 15:03:00 19 /min [facility] Body height 2021-04-24 15:03:00 195 cm [facility] Body weight 2021-04-24 15:03:00 113.966 kg [facility] BMI 2021-04-24 15:03:00 29.97 kg/m2 [facility] Oxygen saturation in Arterial blood by Pulse oximetry 2021-04-24 15:03:00 98 /min [facility] Systolic blood pressure 2021-02-01 21:56:00 115 mm[Hg] [facility] Diastolic blood pressure 2021-02-01 21:56:00 69 mm[Hg] [facility] Heart rate 2021-02-01 21:56:00 63 /min [facility] Body temperature 2021-02-01 21:56:00 36.78 Madeline [facility] Respiratory rate 2021-02-01 21:56:00 17 /min [facility] Body height 2021-02-01 21:56:00 193.5 cm [facility] Body weight 2021-02-01 21:56:00 113.626 kg [facility] BMI 2021-02-01 21:56:00 30.35 kg/m2 [facility] Systolic blood pressure 2020-10-29 21:58:00 105 mm[Hg] [facility] Diastolic blood pressure 2020-10-29 21:58:00 69 mm[Hg] [facility] Heart rate 2020-10-29 21:58:00 73 /min [facility] Body temperature 2020-10-29 21:58:00 36.78 Madeline [facility] Respiratory rate 2020-10-29 21:58:00 13 /min [facility] Body weight 2020-10-29 21:58:00 111.812 kg [facility] Oxygen saturation in Arterial blood by Pulse oximetry 2020-10-29 21:58:00 97 /min [facility] Systolic blood pressure 2020-09-26 21:06:00 122 mm[Hg] [facility] Diastolic blood pressure 2020-09-26 21:06:00 75 mm[Hg] [facility] Heart rate 2020-09-26 21:06:00 98 /min [facility] Body temperature 2020-09-26 21:06:00 36.67 Madeline [facility] Respiratory rate 2020-09-26 21:06:00 18 /min [facility] Body weight 2020-09-26 21:06:00 113.399 kg last weight from chart, hard for pt to walk [facility] Systolic blood pressure 2020-06-13 16:01:00 111 mm[Hg] [facility] Diastolic blood pressure 2020-06-13 16:01:00 68 mm[Hg] [facility] Heart rate 2020-06-13 16:01:00 74 /min [facility] Body temperature 2020-06-13 16:01:00 36.72 Madeline [facility] Respiratory rate 2020-06-13 16:01:00 17 /min [facility] Body weight 2020-06-13 16:01:00 113.513 kg [facility] Oxygen saturation in Arterial blood by Pulse oximetry 2020-06-13 16:01:00 97 /min [facility] Systolic blood pressure 2020-06-13 16:01:00 111 mm[Hg] [facility] Diastolic blood pressure 2020-06-13 16:01:00 68 mm[Hg] [facility] Heart rate 2020-06-13 16:01:00 74 /min [facility] Body temperature 2020-06-13 16:01:00 36.72 Madeline [facility] Respiratory rate 2020-06-13 16:01:00 17 /min [facility] Body weight 2020-06-13 16:01:00 113.513 kg [facility] Oxygen saturation in Arterial blood by Pulse oximetry 2020-06-13 16:01:00 97 /min [facility] Systolic blood pressure 2020-05-30 15:16:00 116 mm[Hg] [facility] Diastolic blood pressure 2020-05-30 15:16:00 69 mm[Hg] [facility] Heart rate 2020-05-30 15:16:00 62 /min [facility] Body temperature 2020-05-30 15:16:00 36.56 Madeline [facility] Respiratory rate 2020-05-30 15:16:00 22 /min [facility] Body height 2020-05-30 15:16:00 194 cm [facility] Body weight 2020-05-30 15:16:00 113.581 kg [facility] BMI 2020-05-30 15:16:00 30.18 kg/m2 [facility] Systolic blood pressure 2020-04-27 15:50:00 115 mm[Hg] [facility] Diastolic blood pressure 2020-04-27 15:50:00 72 mm[Hg] [facility] Heart rate 2020-04-27 15:50:00 67 /min [facility] Body temperature 2020-04-27 15:50:00 36.44 Madeline [facility] Respiratory rate 2020-04-27 15:50:00 16 /min [facility] Body weight 2020-04-27 15:50:00 114.93 kg [facility] Systolic blood pressure 2020-01-30 16:02:00 115 mm[Hg] [facility] Diastolic blood pressure 2020-01-30 16:02:00 66 mm[Hg] [facility] Heart rate 2020-01-30 16:02:00 69 /min [facility] Body temperature 2020-01-30 16:02:00 36.56 Madeline [facility] Respiratory rate 2020-01-30 16:02:00 19 /min [facility] Body weight 2020-01-30 16:02:00 109.941 kg [facility] Oxygen saturation in Arterial blood by Pulse oximetry 2020-01-30 16:02:00 100 /min [facility] Respiratory rate 2020-01-09 16:56:00 18 /min [facility] Body height 2020-01-09 16:56:00 191.1 cm [facility] Body weight 2020-01-09 16:56:00 107.865 kg [facility] BMI 2020-01-09 16:56:00 29.53 kg/m2 [facility] Oxygen saturation in Arterial blood by Pulse oximetry 2020-01-09 16:56:00 100 /min [facility] Systolic blood pressure 2020-01-09 16:56:00 117 mm[Hg] [facility] Diastolic blood pressure 2020-01-09 16:56:00 77 mm[Hg] [facility] Heart rate 2020-01-09 16:56:00 93 /min [facility] Body temperature 2020-01-09 16:56:00 35.61 Madeline [facility] Systolic blood pressure 2019-07-11 20:52:00 108 mm[Hg] [facility] Diastolic blood pressure 2019-07-11 20:52:00 71 mm[Hg] [facility] Heart rate 2019-07-11 20:52:00 76 /min [facility] Body temperature 2019-07-11 20:52:00 36.22 Madeline [facility] Respiratory rate 2019-07-11 20:52:00 18 /min [facility] Body height 2019-07-11 20:52:00 191.1 cm [facility] Body weight 2019-07-11 20:52:00 107.502 kg [facility] BMI 2019-07-11 20:52:00 29.43 kg/m2 [facility] Oxygen saturation in Arterial blood by Pulse oximetry 2019-07-11 20:52:00 99 /min [facility] Procedures Procedure Date / Time Performed Performing Clinician Source FLU VACC (), 6 MO-64 YRS, .5ML, IM, QUAD (FLUCELVAX) 2022-10-10 21:00:35 Db Gonzalez [facility] PHYSICIAN ORDERS 2022-10-10 06:01:00 Doctor Unas signed, [place] [facility] SARS-COV-2 COVID-19 VACCINE,0.3ML,IM (PFIZER) 2021-09-27 15:33:53 Doctor Unassigned, [place] [facility] FLU VACC (), 6+ MONTHS, IM, QUAD 2021-09-20 21:00:22 Tisha Hernandez [facility] CONSENT/REFUSAL FOR DIAGNOSIS AND TREATMENT 2021-09-20 20:52:40 Doctor Unassigned, [place] [facility] ASSIGNMENT OF BENEFITS 2021-09-20 20:52:29 Docto r Unassigned, [place] [facility] INSURANCE CORRESPONDENCE 2021-06-03 05:01:00 Doc tor Unassigned, [place] [facility] GARDASIL 9 (HPV 9V) VACCINE 2021-04-24 15:32:52 Janny Kraus [facility] GARDASIL 9 (HPV 9V) VACCINE 2021-02-01 22:22:49 Shahana Granado [facility] TDAP VACCINE, >11 YRS, IM 2021-02-01 21:58:54 Shahana Granado [facility] FLU VACC (), 6+ MONTHS, IM, QUAD 2020-08-31 16:30:56 Tisha Hernandez [facility] ASSIGNMENT OF BENEFITS 2020-08-31 16:21:28 Docto r Unassigned, [place] [facility] EXTERNAL PROVIDER RECORDS 2020-07-11 05:01:00 Do ctor Unassigned, [place] [facility] EXTERNAL PROVIDER RECORDS 2020-06-26 05:01:00 Do ctor Unassigned, [place] [facility] MENINGOCOCCAL B VACCINE, OMV, 2 DOSE, IM 2020-05-30 15:11:23 Blanchard Julisa [facility] MENACTRA ([id number]) VACCINE 2020-04-27 16:23:33 Julius Hernandez [facility] MENINGOCOCCAL B VACCINE, OMV, 2 DOSE, IM 2020-04-27 16:23:33 Tisha Hernandez [facility] POCT GRP A STREP (MOLECULAR) 2020-01-09 17:17:00 Blanchard [facility] POCT FLU A AND B (MOLECULAR) 2020-01-09 17:17:00 Blanchard Julisa [facility] [id number] CONSENT 2020-01-09 06:01:00 Doctor Roque signed, [place] [facility] ASSIGNMENT OF BENEFITS 2019-07-11 20:16:09 Docto r Unassigned, [place] [facility] Encounters Start Date/Time End Date/Time Encounter Type Admission Type Attending [facility] Facility Care Department Encounter ID Source 2025-02-06 14:30:00 2025-02-06 14:30:00 [id number]:00:00 2025-02-01 13:00:00 Outpatient WILLA CARLIN [id number] Maribell rebecca 2025-01-13 00:00:00 2025-01-13 00:00:00 Outpatient MONET KRISHNA [id number] Mar[facility]ell rebecca 2024-12-08 14:30:00 2024-12-08 14:30:00 Outpatient MONET KRISHNA [id number] Maribell Dunlap 2024-12-02 00:00:00 2024-12-02 00:00:00 Outpatient MELANIE BRANHAM [id number] Maribell Dunlap 2024-12-01 00:00:00 2024-12-01 00:00:00 Outpatient MELANIE BRANHAM [id number] Maribell Reneeybjasbir 2024-11-30 09:10:00 2024-11-30 09:10:00 Outpatient LAB90 MARIBELL WILLIAM [id number] Maribell Reneeybjasbir 2024-11-30 00:00:00 2024-11-30 00:00:00 Outpatient MELANIE BRANHAM MARIBELL WILLIAM [id number] Maribell Reneeybjasbir 2024-11-28 11:50:00 2024-11-28 11:50:00 Outpatient LAB90 MARIBELL WILLIAM [id number] Maribell Reneeybjasbir 2024-11-28 11:00:00 2024-11-28 11:00:00 Outpatient MELANIE BRANHAM MARIBELL WILLIAM [id number] Maribell Reneeybjasbri 2024-11-28 00:00:00 2024-11-28 00:00:00 Outpatient MARIBELL WILLIAM [id number] Maribell ybjasbir 2024-11-25 00:00:00 2024-11-25 00:00:00 [facility] [id number] [facility] 00:00:00 2024-10-18 00:00:00 Outpatient [facility] KRISH[facility] [id number] [facility] 2024-10-17 00:00:00 2024-10-17 00:00:00 Outpatient MONET KRISHNA [id number] Maribell Seybjasbir 2024-09-28 00:00:00 2024-09-28 00:00:00 Outpatient MD MARIBELL COLÓN [id number] [facility] 2024-09-23 00:00:00 2024-09-23 00:00:00 Outpatient MD MARIBELL COLÓN [id number] Maribell Seybjasbir 2024-09-13 00:00:00 2024-09-13 00:00:00 Outpatient MONET KRISHNA [id number] Maribell Seybold 2024-08-31 00:00:00 2024-08-31 00:00:00 Outpatient MON[facility] KRISH[facility] [id number] [facility] 2024-08-12 00:00:00 2024-08-12 00:00:00 Outpatient HUNDL, MONET WILLIAM [id number] [facility] 2024-08-09 00:00:00 2024-08-09 00:00:00 Outpatient [facility]LL [facility] [id number] [facility] 2024-08-04 00:00:00 2024-08-04 00:00:00 Outpatient HUNDL, MONET WILLIAM [id number] [facility] 2024-07-27 15:30:00 2024-07-27 15:30:00 Outpatient HUNDL, MONET WLILIAM [id number] [facility] 2024-07-18 00:00:00 2024-07-18 00:00:00 Outpatient HUNDL, MONET WILLIAM [id number] [facility] 2024-07-01 00:00:00 2024-07-01 00:00:00 Outpatient HUNDL, MONET WILLIAM [id number] [facility] 2024-06-29 00:00:00 2024-06-29 00:00:00 Outpatient MD MARIBELL COLÓN [id number] [facility] 2024-06-29 00:00:00 2024-06-29 00:00:00 Outpatient HUNDL, MONET WILLIAM [id number] [facility] 2024-06-27 00:00:00 2024-06-27 00:00:00 Outpatient HUNDL, MONET WILLIAM [id number] [facility] 2024-06-23 00:00:00 2024-06-23 00:00:00 Outpatient HUNDL, MONET WILLIAM [id number] Maribell Seybold 2024-06-21 15:30:00 2024-06-21 15:30:00 Outpatient HUNDL, MONET WILLIAM [id number] Maribell Seybold 2024-06-21 00:00:00 2024-06-21 00:00:00 Outpatient HUNDL, MONET WILLIAM [id number] [facility] 2024-06-20 09:15:00 2024-06-20 09:15:00 Outpatient LAB90 MARIBELL MARIBELL [id number] Maribell Seybold 2024-06-16 14:50:00 2024-06-16 14:50:00 Outpatient LABSmiley WILLIAM MARIBELL [id number] Maribell Seybold 2024-06-16 00:00:00 2024-06-16 00:00:00 Outpatient MONET KRISHNA MARIBELL WILLIAM [id number] Maribell Seybold 2024-06-10 15:30:00 2024-06-10 15:30:00 Outpatient TOMI, MONET WILLIAM MARIBELL [id number] Maribell Seybold 2024-05-24 09:00:00 2024-05-24 09:00:00 Outpatient TOMI, MONET MARIBELL WILLIAM [id number] Mraibell Seybold 2024-05-24 00:00:00 2024-05-24 00:00:00 Outpatient MARIBELL WILLIMA [id number] Maribell Seybold 2024-05-24 00:00:00 2024-05-24 00:00:00 Outpatient MONET KRISHNA MARIBELL WILLIAM [id number] Maribell Seybold 2024-05-06 15:00:00 2024-05-06 15:00:00 Outpatient PREZAREN Villegas MARIBELL WILLIAM [id number] Maribell Seybold 2024-04-05 00:00:00 2024-04-05 00:00:00 Outpatient PREZAS REN WILLIAM [id number] Maribell Seybold 2024-03-26 00:00:00 2024-03-26 00:00:00 Outpatient LI VANESSA MARIBELL WILLIAM [id number] Maribell Seybold 2024-03-18 00:00:00 2024-03-18 00:00:00 Outpatient PREZASREN [id number] Maribell Seybold 2024-03-15 11:30:00 2024-03-15 11:30:00 Outpatient PREZANelly REN WILLIAM [id number] Maribell Seybold 2024-03-15 00:00:00 2024-03-15 00:00:00 Outpatient PREZAS REN WILLIAM [id number] Maribell Seybjasbir 2024-03-14 11:15:00 2024-03-14 11:15:00 Outpatient PREZAS, REN WILLIAM MARIBELL [id number] Maribell Seybjasbir 2024-03-11 16:15:00 2024-03-11 16:15:00 Outpatient PREZAS, REN WILLIAM MARIBELL [id number] Maribell Seybjasbir 2024-03-11 11:40:00 2024-03-11 11:40:00 Outpatient LAB90 MARIBELL WILLIAM [id number] Maribell Seybjasbir 2024-03-09 00:00:00 2024-03-09 00:00:00 Outpatient PREZAS, REN MARIBELL WILLIAM [id number] Maribell Reneeybjasbir 2024-03-02 16:30:00 2024-03-02 16:30:00 Outpatient EFRA HOYT MARIBELL WILLIAM [id number] Maribell Reneeybjasbir 2024-03-02 00:00:00 2024-03-02 00:00:00 Outpatient PREZAS, REN WILLIAM MARIBELL [id number] Maribell Seybjasbir 2024-03-02 00:00:00 2024-03-02 00:00:00 Outpatient PREZAS, REN MARIBELL WILLIAM [id number] Maribell Seybjasbir 2024-03-01 00:00:00 2024-03-01 00:00:00 Outpatient PREZAS, REN MARIBELL WILLIAM [id number] Maribell Seybold 2024-02-26 00:00:00 2024-02-26 00:00:00 Outpatient PREZAS, REN MARIBELL WILLIAM [id number] Maribell Seybold 2024-02-26 00:00:00 2024-02-26 00:00:00 Outpatient MD MARIBELL COLÓN [id number] Maribell Seybjasbir 2024-02-24 16:30:00 2024-02-24 16:30:00 Outpatient VANESSA LI [id number] Maribell Seybjasbir 2024-02-17 00:00:00 2024-02-17 00:00:00 Outpatient MD MARIBELL COLÓN [id number] Maribell Reneeybjasbir 2024-02-16 00:00:00 2024-02-16 00:00:00 Outpatient PREZAS, REN WILLIAM MARIBELL [id number] Maribell Reneeybjasbir 2024-02-08 00:00:00 2024-02-08 00:00:00 Outpatient PREZAS, REN WILLIAM MARIBELL [id number] Maribell Reneeybjasbir 2024-02-08 00:00:00 2024-02-08 00:00:00 Outpatient PREZAS, REN WILLIAM MARIBELL [id number] Maribell Reneeybjasbir 2024-02-05 09:40:00 2024-02-05 09:40:00 Outpatient LAB90 MARIBELL WILLIAM [id number] Maribell Reneeybjasbir 2024-02-05 00:00:00 2024-02-05 00:00:00 Outpatient PREZAS, REN MARIBELL WILLIAM [id number] Maribell Reneeybjasbir 2024-02-04 09:15:00 2024-02-04 09:15:00 Outpatient PREZAS, REN WILLIAM MARIBELL [id number] Maribell Reneeybjasbir 2024-02-02 00:00:00 2024-02-02 00:00:00 Outpatient PREZAS, REN [facility] [id number] [facility] 2024-01-29 13:30:00 2024-01-29 13:30:00 Outpatient GI, MIHAI WILLIAM [id number] Maribell Seybjasbir 2024-01-25 11:15:00 2024-01-25 11:15:00 Outpatient PREZAS, REN MARIBELL WILLIAM [id number] Maribell Seybold 2024-01-01 16:35:00 2024-01-01 16:35:00 Outpatient LAB90 MARIBELL WILLIAM [id number] Maribell Seybold 2024-01-01 16:00:00 2024-01-01 16:00:00 Outpatient MIHAI ANGELO [id number] Maribell Seybjasibr 2023-12-31 14:30:00 2023-12-31 14:30:00 Outpatient PREZAS, REN MARIBELL WILLIAM [id number] Maribell Reneeybold 2023-12-31 14:30:00 2023-12-31 14:30:00 Outpatient REN DOTSON MARIBELL MARIBELL [id number] Maribell [facility] 2023-12-02 16:30:00 2023-12-02 16:30:00 Outpatient MIHAI ANGELO MARIBELL WILLIAM [id number] [facility] 2023-06-22 00:00:00 2023-06-22 00:00:00 Telephone Juilsa Urias [facility] 1..114 350.1.13.10 4.2.7.2.686 [id number] 225 [id number] [facility] 2022-10-21 00:00:00 2022-10-21 00:00:00 Telephone [facility]CATHIE [facility] 1.84.114 350.1.13.10 4.2.7.2.686 [id number] [facility] 2022-10-10 13:30:00 2022-10-10 16:05:29 Outpatient R IRMA MISHEL [facility] [id number] [facility] 2022-10-10 13:30:00 2022-10-10 14:00:00 Office Visit Irma Mishel [facility] 1.84.114 350.1.13.10 4.2.7.2.686 [id number] [facility] 2022-10-10 00:00:00 2022-10-10 00:00:00 Orders Only Doctor Unassigned, [place] [facility] 1..114 350.1.13.10 4.2.7.2.686 [id number] [id number] [facility] 2021-09-27 10:20:55 2021-09-27 10:30:55 Imm/Inj Visit Isabel [place] Tisha Boudreaux [facility] 1.2.840.114 350.1.13.10 4.2.7.2.686 [id number] 225 [id number] [facility] 2021-09-27 10:30:00 2021-09-27 10:30:00 Outpatient Nuvia DAVIDTISHA PARTIDA [facility] [id number] [facility] 2021-09-27 00:00:00 2021-09-27 00:00:00 Letter (Out) [facility]anch[facility] 1.0.114 350.1.13.10 4.2.7.2.686 [id number] 225 [id number] [facility] 2021-09-20 15:53:01 2021-09-20 15:59:36 Nurse Visit Nurse, Josh Zafaram [facility] 1.840.114 350.1.13.10 4.2.7.2.686 [id number] 225 [id number] [facility] 2021-09-20 15:40:00 2021-09-20 15:59:36 Outpatient Nuvia TISHA HERNANDEZ [facility] [id number] [facility] 2021-09-20 00:00:00 2021-09-20 00:00:00 Orders Only Doctor Unassigned, [place] [facility] 1.840.114 350.1.13.10 4.2.7.2.686 [id number] [id number] [facility] 2021-07-08 11:00:00 2021-07-08 11:00:00 Outpatient R BLANCHARD [facility] [id number] [facility] 2021-07-08 00:00:00 2021-07-08 00:00:00 Patient Secure Janny Fuller [facility] 1.20.114 350.1.13.10 4.2.7.2.686 [id number] 225 [id number] [facility] 2021-06-25 00:00:00 2021-06-25 00:00:00 Patient Secure Msg Janny Kraus [facility] 1.2.840.114 350.1.13.10 4.2.7.2.686 [id number] 225 [id number] [facility] 2021-06-25 00:00:00 2021-06-25 00:00:00 Letter (Out) Janny Kraus [facility] 1.2840.114 350.1.13.10 4.2.7.2.686 [id number] 225 [id number] [facility] 2021-06-18 14:11:20 2021-06-18 15:15:44 Office Visit Janny Kraus [facility] 1.2.840.114 350.1.13.10 4.2.7.2.686 [id number] 225 [id number] [facility] 2021-06-18 14:10:00 2021-06-18 14:10:00 Outpatient R JANNY KRAUS [facility] [id number] [facility] 2021-06-05 09:50:00 2021-06-05 09:50:00 Outpatient JANNY FARIAS [facility] [id number] [facility] 2021-06-03 00:00:00 2021-06-03 00:00:00 Telephone Janny Kraus [facility] 1.20.114 350.1.13.10 4.2.7.2.686 [id number] 225 [id number] [facility] 2021-06-03 00:00:00 2021-06-03 00:00:00 Orders Only Doctor Unassigned, [place] [facility] 1.2.840.114 350.1.13.10 4.2.7.2.686 [id number] [id number] [facility] 2021-05-31 13:31:43 2021-05-31 15:05:21 Office Visit Janny Kraus [facility] 1.2.840.114 350.1.13.10 4.2.7.2.686 [id number] 225 [id number] [facility] 2021-05-31 13:30:00 2021-05-31 13:30:00 Outpatient JANNY FARIAS [facility] [id number] [facility] 2021-04-26 00:00:00 2021-04-26 00:00:00 Telephone Julisa Blanchard [facility] 1.2.840.114 350.1.13.10 4.2.7.2.686 [id number] 225 [id number] [facility] 2021-04-24 15:20:00 2021-04-24 15:20:00 Outpatient TISHA LANDA [facility] [id number] [facility] 2021-04-24 09:53:17 2021-04-24 10:37:55 Office Visit Janny Kraus [facility] 1.2.840.114 350.1.13.10 4.2.7.2.686 [id number] 225 [id number] [facility] 2021-04-24 09:50:00 2021-04-24 09:50:00 Outpatient JANNY FARIAS [facility] [id number] [facility] 2021-04-01 16:25:00 2021-04-01 16:16:24 Outpatient BARBARA WOLF [facility] [id number] [facility] 2021-03-09 08:20:00 2021-03-09 08:19:58 Outpatient EFREN BENSON [facility] [id number] [facility] 2021-02-21 17:00:00 2021-02-21 17:00:00 Outpatient EFREN BENSON [facility] [id number] [facility] 2021-02-01 15:46:36 2021-02-01 16:41:30 Office Visit Shahana Granado [facility] 1.284.114 350.1.13.10 4.2.7.2.686 [id number] 225 [id number] [facility] 2021-02-01 15:40:00 2021-02-01 15:40:00 Outpatient R SHAHANA GRANADO [facility] [id number] [facility] 2020-10-29 15:30:50 2020-10-29 16:33:51 Office Visit Janny Kraus [facility] 1.2.114 350.1.13.10 4.2.7.2.686 [id number] 225 [id number] [facility] 2020-10-29 15:30:00 2020-10-29 15:30:00 Outpatient R JANNY KRAUS [facility] [id number] [facility] 2020-10-29 00:00:00 2020-10-29 00:00:00 Letter (Out) Janny Kraus [facility] 1..114 350.1.13.10 4.2.7.2.686 [id number] 225 [id number] [facility] 2020-10-25 00:00:00 2020-10-25 00:00:00 Telephone Blanchard Julisa [facility] 1.20.114 350.1.13.10 4.2.7.2.686 [id number] 225 [id number] [facility] 2020-10-23 00:00:00 2020-10-23 00:00:00 Telephone Blanchard Julisa [facility] 1.2840.114 350.1.13.10 4.2.7.2.686 [id number] 225 [id number] [facility] 2020-09-27 00:00:00 2020-09-27 00:00:00 Telephone Janny Kraus [facility] 1.2.840.114 350.1.13.10 4.2.7.2.686 [id number] 225 [id number] [facility] 2020-09-26 14:49:59 2020-09-26 15:45:05 Office Visit Janny Kraus [facility] 1.2.840.114 350.1.13.10 4.2.7.2.686 [id number] 225 [id number] [facility] 2020-09-26 14:50:00 2020-09-26 14:50:00 Outpatient R JANNY KRAUS [facility] [id number] [facility] 2020-08-31 11:21:08 2020-08-31 11:24:53 Nurse Visit Nurse, Josh Thorne [facility] 1.2.840.114 350.1.13.10 4.2.7.2.686 [id number] 225 [id number] 2020-08-31 11:21:08 2020-08-31 11:24:53 Nurse Visit Nurse, Julisa Pugh [facility] 1.2.840.114 350.1.13.10 4.2.7.2.686 [id number] 225 [id number] [facility] 2020-08-31 11:20:00 2020-08-31 11:20:00 Outpatient R [facility] [id number] [facility] 2020-08-31 00:00:00 2020-08-31 00:00:00 Orders Only Doctor Unassigned, [place] [facility] 1.2.840.114 350.1.13.10 4.2.7.2.686 [id number] [id number] 2020-08-31 00:00:00 2020-08-31 00:00:00 Letter (Out) Janny Kraus [facility] 1.2.840.114 350.1.13.10 4.2.7.2.686 [id number] 2020-08-31 00:00:00 2020-08-31 00:00:00 Orders Only Doctor Unassigned, [place] [facility] 1.2.840.114 350.1.13.10 4.2.7.2.686 [id number] [id number] [facility] 2020-08-31 00:00:00 2020-08-31 00:00:00 Letter (Out) Janny Kraus [facility] 1.2.840.114 350.1.13.10 4.2.7.2.686 [id number] 225 [id number] [facility] 2020-07-11 00:00:00 2020-07-11 00:00:00 Orders Only Doctor Unassigned, [place] [facility] 1.2.840.114 350.1.13.10 4.2.7.2.686 [id number] [id number] 2020-07-11 00:00:00 2020-07-11 00:00:00 Orders Only Doctor Unassigned, [place] [facility] 1.2.840.114 350.1.13.10 4.2.7.2.686 [id number] [id number] [facility] 2020-06-26 00:00:00 2020-06-26 00:00:00 Orders Only Doctor Unassigned, [place] [facility] 1.2.840.114 350.1.13.10 4.2.7.2.686 [id number] [id number] [facility] 2020-06-26 00:00:00 2020-06-26 00:00:00 Orders Only Doctor Unassigned, [place] [facility] 1.2.840.114 350.1.13.10 4.2.7.2.686 [id number] [id number] 2020-06-21 00:00:00 2020-06-21 00:00:00 Telephone Julisa Blanchard [facility] 1.2.840.114 350.1.13.10 4.2.7.2.686 [id number] 225 [id number] [facility] 2020-06-21 00:00:00 2020-06-21 00:00:00 Telephone Richi, [facility] 1.2.840.114 350.1.13.10 4.2.7.2.686 [id number] 225 [id number] 2020-06-13 10:56:54 2020-06-13 11:26:02 Office Visit Richi, [facility] 1.2.840.114 350.1.13.10 4.2.7.2.686 [id number] 225 [id number] [facility] 2020-06-13 10:56:54 2020-06-13 11:26:02 Office Visit Richi, [facility] 1.2.840.114 350.1.13.10 4.2.7.2.686 [id number] 2020-06-13 11:00:00 2020-06-13 11:00:00 Outpatient Nuvia BL[facility]ARD [facility] [id number] [facility] 2020-05-30 10:10:54 2020-05-30 10:45:54 Office Visit Richi, [facility] 1.2.840.114 350.1.13.10 4.2.7.2.686 [id number] 225 [id number] [facility] 2020-05-30 09:59:05 2020-05-30 10:10:31 [facility] 1.2.840.114 350.1.13.10 4.2.7.2.686 [id number] 225 [id number] [facility] 2020-05-30 10:00:00 2020-05-30 10:00:00 Outpatient Nuvia [facility]ARD [facility] [id number] [facility] 2020-05-28 10:00:00 2020-05-28 10:00:00 Outpatient Nuvia [facility]ARD [facility] [id number] [facility] 2020-04-27 10:37:30 2020-04-27 11:28:18 Office Visit DavidTisha [facility] 1.2.840.114 350.1.13.10 4.2.7.2.686 [id number] 225 [id number] [facility] 2020-04-27 10:40:00 2020-04-27 10:40:00 Outpatient R TISHA HERNANDEZ [facility] [id number] [facility] 2020-01-31 09:26:43 2020-01-31 09:40:25 Elevator Conductor [facility] 1.2.114 350.1.13.10 4.2.7.2.686 [id number] 225 [id number] [facility] 2020-01-31 09:30:00 2020-01-31 09:30:00 Outpatient R DAVIDTISHA PARTIDA [facility] [id number] [facility] 2020-01-31 09:20:00 2020-01-31 09:20:00 Outpatient R [facility]ANCHARD [facility] [id number] [facility] 2020-01-30 10:54:50 2020-01-30 11:53:36 Office Visit Janny Kraus [facility] 1.20.114 350.1.13.10 4.2.7.2.686 [id number] 225 [id number] [facility] 2020-01-30 10:50:00 2020-01-30 10:50:00 Outpatient JANNY FARIAS [facility] [id number] [facility] 2020-01-09 10:56:05 2020-01-09 11:23:58 Office Visit Blanchard Julisa [facility] 1.2840.114 350.1.13.10 4.2.7.2.686 [id number] 225 [id number] [facility] 2020-01-09 00:00:00 2020-01-09 00:00:00 Orders Only Doctor Unassigned, [place] [facility] 1.2.840.114 350.1.13.10 4.2.7.2.686 [id number] [id number] [facility] 2019-07-15 00:00:00 2019-07-15 00:00:00 Telephone Darlin Marin [facility] 1.2.840.114 350.1.13.10 4.2.7.2.686 [id number] 225 [id number] [facility] 2019-07-11 15:18:30 2019-07-11 16:20:40 Office Visit Alkayvontoño Marin [facility] 1.2.840.114 350.1.13.10 4.2.7.2.686 [id number] 225 [id number] [facility] 2019-07-11 00:00:00 2019-07-11 00:00:00 Orders Only Doctor Unassigned, [place] [facility] 1.2.840.114 350.1.13.10 4.2.7.2.686 [id number] [id number] [facility] Results Test Description Test Time Test Comments Results Result Co mments Source [facility] FLU A AND B (MOLECULAR)2020-01-09 17:17:00* Test Item Value Reference Range Interpretation Comme nts POCT INFLUENZA A (test code = 3840) Negative Negative - Negative POCT INFLUENZA B (test code = 3841) Negative Negative - Negative Lab Interpretation (test cod e = 62343-0) Normal [facility] GRP A STREP (MOLECULAR)2020-01-09 17:17:00* Test Item Value Reference Range Interpretation Comme nts POCT GP A STREP (test code = 60502-2) Negative Negative - Negative Lab Interpretation (test cod e = 03447-3) Normal [facility] FLU A AND B (MOLECULAR)2020-01-09 17:17:00* Test Item Value Reference Range Interpretation Comme nts POCT INFLUENZA A (test code = 3840) Negative Negative - Negative POCT INFLUENZA B (test code = 3841) Negative Negative - Negative Lab Interpretation (test cod e = 13283-9) Normal [facility] Notes Date/Time Note Provider Source 2024-06-21 15:37:28 Chief Complaint Patient presents with Follow-up Follow up on anxiety/depression. Patient states he is doing better. Farhana Amin MA II Farhana Amin MA, II [facility] 2024-05-24 09:04:00 Chief Complaint Patient presents with Mole Removal Skin lesion on buttocks for several years. Hair/Scalp Problem Hair loss over the past 3-4 years. Chest Pain Pressure in chest and sometimes in different areas of his torso for several months. No dizziness, headaches, lightheaded, no chest pain. Farhana Amin MA II Farhana Amin MA, II [facility] 2024-01-01 16:03:25 Chief Complaint Patient presents with Physical Fasting for labs Kira Gregg LVN [facility] 2023-06-22 11:11:36 Formatting of this n ote might be different from the original. Spoke with MOC and shot record and letter ready for pickup Dara West RN [facility] 2023-06-22 10:32:01 Formatting of this n ote might be different from the original. Patient in clinic stating that the [facility] did not accept his shot record. There is form attached to shot record stating what all needs to be included in shot record. Please call [phone] when ready for pickup. Sofia Sylvester [facility]
[2025-01-15] MEDS ORDERED: MUPIROCIN 2% OINT 22GM TUBE TOP ONE (12:40)
[2025-01-15] MEDS ORDERED: TDAP (DIPHTH,PERTUSS(ACELL),TET VAC) 0.5 ML VIAL IMVAC ONE (12:40)
--- NOTE | 2025-01-15 13:26 | RAD REPORT ---
Exam:Ankle Left 3 View HISTORY: left ankle pain FINDINGS: No fracture or dislocation is seen Lateral soft tissue swelling
--- NOTE | 2025-01-15 13:31 | ER ---
Nurse's Notes [facility] Name: Zelalem Louis Age: 19 yrs Sex: Male : 2005 Arrival Date: 01/15/2025 Time: 12:14 Bed 9 Private MD: Diagnosis: Sprain of ankle;Abrasion of lower leg-bilateral knees;Local infection of the skin and subcutaneous tissue, unspecified Presentation: 01/15 12:27 Chief complaint: Patient states: twisted his left ankle and fell on Thursday , has pain iw to left ankle and right knee. Coronavirus screen: At this time, the client does not indicate any symptoms associated with coronavirus-19. Ebola Screen: No symptoms or risks identified at this time. Initial Sepsis Screen: Does the patient meet any 2 criteria? No. Patient's initial sepsis screen is negative. Does the patient have a suspected source of infection? No. Patient's initial sepsis screen is negative. Risk Assessment: Do you want to hurt yourself or someone else? Patient reports no desire to harm self or others. Onset of symptoms was January 13, 2025. 12:27 Method Of Arrival: Ambulatory iw 12:27 Acuity: SANTA 4 iw Historical: - Allergies: 12:29 No Known Allergies; iw - Home Meds: 12:29 None [Active]; iw - PMHx: 12:29 None; iw - PSHx: 12:29 pilonidal cyst; iw - Immunization history:: Last tetanus immunization: unknown. - Infectious Disease History:: Denies. - Social history:: Smoking status: Patient denies any tobacco usage or history of. Screenin:58 [facility] ED Fall Risk Assessment (Adult) History of falling in the last 3 months, ph including since admission Yes- single mechanical fall (1 pt) Confusion or Disorientation No (0 pts) Intoxicated or Sedated No (0 pts) Impaired Gait No (0 pts) Mobility Assist Device Used No (0 pt) Altered Elimination No (0 pt) Score/Fall Risk Level 0 - 2 = Low Risk Oriented to surroundings, Maintained a safe environment, Hourly rounding (assess needs \T\ fall precautionary measures) done. Abuse screen: Denies threats or abuse. Has been threatened or abused. Nutritional screening: No deficits noted. Tuberculosis screening: No symptoms or risk factors identified. Assessment: 12:57 General: Appears in no apparent distress. Behavior is calm, cooperative. Pain: ph Complains of pain in left lateral ankle and left knee and right knee. Neuro: Level of Consciousness is awake, alert, obeys commands, Oriented to person, place, time, situation. Derm: Skin is pink, warm \T\ dry. Musculoskeletal: Circulation, motion, and sensation intact. Range of motion: intact in all extremities. Injury Description: Abrasion sustained to BILATERAL KNEES. Vital Signs: 12:27 BP 112 / 72; Pulse 74; Resp 16; Temp 97.7; Pulse Ox 99% on R/A; Weight 108.86 kg; iw Height 6 ft. 4 in. ; Pain 4/10; 13:48 BP 118 / 72; Pulse 76; Resp 18; Temp 97.5; Pulse Ox 98% on R/A; ph 12:27 Body Mass Index 29.21 (108.86 kg, 193.04 cm) iw 12:27 Pain Scale: Adult iw ED Course: 12:17 Patient arrived in ED. mr 12:17 Lashanda Douglas FNP-C is PHCP. kb 12:17 Yung Guzman MD is Attending Physician. kb 12:29 Triage completed. iw 12:29 Arm band placed on. iw 12:34 Taylor Castillo, JULIANA is Primary Nurse. ph 12:55 Wound care: to abrasion, located on right knee was soaked in normal saline solution, ph dressed with BACTROBAN AND NON-ADHERENT. Wound care: to abrasion, located on left knee was soaked in normal saline solution, dressed with BACTROBAN AND NON-ADHERENT. 12:58 Patient has correct armband on for positive identification. Bed in low position. Call ph light in reach. Side rails up X 1. Pulse ox on. NIBP on. Door closed. Noise minimized. 12:58 No provider procedures requiring assistance completed. Patient did not have IV access ph during this emergency room visit. 13:18 Ankle Left 3 View XRAY In Process Unspecified. EDMS 13:48 [place] wrap to left ankle. ph Administered Medications: 12:57 Drug: Mupirocin Topical Ointment 2 % 1 application Topical once Route: Topical; Site: ph affected area; 13:47 Follow up: Response: No adverse reaction ph 12:57 Drug: Boostrix Tdap IM 0.5 ml IM once; as a single dose Route: IM; Site: left deltoid; ph 13:47 Follow up: Response: No adverse reaction ph Medication: 12:58 VIS not applicable for this client. ph Outcome: 13:31 Discharge ordered by . edith 13:47 Discharged to home ambulatory, with family, ph 13:47 Condition: good 13:47 Discharge instructions given to patient, family, Instructed on discharge instructions, follow up and referral plans. medication usage, wound care, Demonstrated understanding of instructions, follow-up care, medications, wound care, Prescriptions given X 1, 13:48 Patient left the ED. ph Signatures: Dispatcher [employer] EDMS Lashanda Douglas, BUSHER HELPER-C BUSHER HELPER-Terrie Gandara, Gurdeep Mackenzie mr Jocelyn Philippe, JULIANA RN Taylor Castillo RN RN ph
--- NOTE | 2025-01-15 13:31 | EDPHYS ---
Physician Documentation [facility] Name: Zelalem Louis Age: 19 yrs Sex: Male : 2005 Arrival Date: 01/15/2025 Time: 12:14 Bed 9 Private MD: ED Physician Yung Guzman HPI: 01/15 13:27 This 19 yrs old Male presents to ER via Ambulatory with complaints of Fall Injury, kb Ankle Injury, Knee Injury. 13:27 Pt is a 19 year old male who presents for left ankle pain and bilateral knee abrasions. kb Pt states he was running 3 days ago, twisted his left ankle and fell to bilateral knees. . Historical: - Allergies: 12:29 No Known Allergies; iw - Home Meds: 12:29 None [Active]; iw - PMHx: 12:29 None; iw - PSHx: 12:29 pilonidal cyst; iw - Immunization history:: Last tetanus immunization: unknown. - Infectious Disease History:: Denies. - Social history:: Smoking status: Patient denies any tobacco usage or history of. ROS: 13:27 Constitutional: As per HPI kb Exam: 13:27 Constitutional: This is a well developed, well nourished patient who is awake, alert, kb and in no acute distress. Head/Face: Normocephalic, atraumatic. ENT: Moist Mucous membranes Cardiovascular: Regular rate Respiratory: Respirations even and unlabored. No increased work of breathing. Talking in full sentences Neuro: Awake and alert, GCS 15, oriented to person, place, time, and situation. 13:27 Musculoskeletal/extremity: Extremities: grossly normal except: noted in the left lateral ankle: pain, swelling, ROM: intact in all extremities, Circulation is intact in all extremities. Sensation intact. Weight bearing: able to fully bear weight, 13:27 Skin: abrasions to bilateral knees with drainage. Vital Signs: 12:27 BP 112 / 72; Pulse 74; Resp 16; Temp 97.7; Pulse Ox 99% on R/A; Weight 108.86 kg; iw Height 6 ft. 4 in. ; Pain 4/10; 13:48 BP 118 / 72; Pulse 76; Resp 18; Temp 97.5; Pulse Ox 98% on R/A; ph 12:27 Body Mass Index 29.21 (108.86 kg, 193.04 cm) iw 12:27 Pain Scale: Adult iw MDM: 12:17 Medical Screening Exam initiated kb 13:29 Differential diagnosis: abrasion, contusion, fracture, sprain. Data reviewed: vital kb signs, nurses notes. Historians other than the Patient: Parent: mother. Counseling: I had a detailed discussion with the patient and/or guardian regarding the historical points, exam findings, and any diagnostic results supporting the discharge/admit diagnosis, radiology results, the need for outpatient follow up, a family practitioner, to return to the emergency department if symptoms worsen or persist or if there are any questions or concerns that arise at home. 01/15 12:25 Order name: Ankle Left 3 View XRAY; Complete Time: 13:27 kb 01/15 12:25 Order name: Wound Care; Complete Time: 12:39 kb 01/15 13:30 Order name: [place] Wrap; Complete Time: 13:47 kb Administered Medications: 12:57 Drug: Mupirocin Topical Ointment 2 % 1 application Topical once Route: Topical; Site: ph affected area; 13:47 Follow up: Response: No adverse reaction ph 12:57 Drug: Boostrix Tdap IM 0.5 ml IM once; as a single dose Route: IM; Site: left deltoid; ph 13:47 Follow up: Response: No adverse reaction ph Disposition: 01/16 12:38 Co-signature as Attending Physician, Yung Guzman MD I agree with the assessment and eugenia plan of care. Disposition Summary: 01/15/25 13:31 Discharge Ordered Notes: Location: Home kb Condition: Stable kb Diagnosis - Sprain of ankle kb - Abrasion of lower leg - bilateral knees kb - Local infection of the skin and subcutaneous tissue, unspecified kb Followup: kb - With: Emergency Department - When: As needed - Reason: Worsening of condition Followup: kb - With: Private Physician - When: 2 - 3 days - Reason: Recheck today's complaints, Continuance of care, Re-evaluation by your physician Discharge Instructions: - Discharge Summary Sheet kb - Ankle Sprain, [id number] kb - Abrasion, [id number] kb - Wound Infection, [id number] kb Forms: - Medication Reconciliation Form kb - Antibiotic Education kb - Prescription Opioid Use kb - Patient Portal Instructions kb - Leadership Thank You Letter kb Prescriptions: - Ibuprofen 800 mg Oral Tablet - take 1 tablet ORAL route every 8 hours As needed take with food; 30 tablet; kb Refills: 0, Product Selection Permitted Signatures: Dispatcher [employer] Lashanda Ye, ELIER SOLOZRANO-Yung Conrad MD MD cha Williams, Irene, RN RN iw Taylor Castillo RN RN ph
[2025-01-15 14:02] VITALS: BP 118/72; TEMP 97.5; O2SAT 98
== END 2025-01-15 13:48 | disposition home or self-care (01) ==
LOC: ER 12:14
DX: S93.402A Sprain of unspecified ligament of left ankle, initial encounter (principal); S80.212A Abrasion, left knee, initial encounter; S80.211A Abrasion, right knee, initial encounter; L08.9 Local infection of the skin and subcutaneous tissue, unspecified
CPT/HCPCS: 96372; 99284